=== PATIENT | male | born 1955 | race Caucasian/White ===

== ENCOUNTER → 2017-10-24 | Outpatient (CLI) | payer BC ==
[~2017-10-24] MED LIST: ASCO100061 PO; B-CO-25 PO; CHOL1000 PO; METO50TA7 PO; RIVA1TAB4 PO; SIMV40TA2 PO; TAMS0.4C38 PO
--- NOTE | 2017-10-24 13:52 | DIAGNOSTIC IMAGING REPORT ---
CHEST 2 VIEWS ROUTINE HISTORY: COUGH COMPARISON: Chest 04/11/2016. FINDINGS: The lungs are clear. Cardiac silhouette is borderline enlarged. This remains unchanged. No pleural effusions. No pneumothorax. IMPRESSION: Stable borderline cardiomegaly. No acute process within the chest. Electronically signed by: Fadi Mayers M.D. 10/24/2017 1:51 PM Dictated Date/Time: 10/24/2017 1:48 PM
[2017-10-24 17:01] LABS: BASO % 0.6 %; BASO ABS # 0.03 K/uL (0-0.2); COMPLETE YES; EOS % 0.6 %; HEMATOCRIT 38.4 % (42-52); IG% 0.2 %; LYMPH % 34.5 %; LYMPH ABS # 1.63 K/uL (1.2-3.4); MEAN CELL VOLUME 92.3 fL (80-100); MEAN CORPUSCULAR HEMOGLOBIN 31.7 pg (25-34); MEAN CORPUSCULAR HGB CONC 34.4 g/dl (32-36); MONO % 8.7 %; NEUT % 55.4 %; PLATELET COUNT 174 K/uL (130-400); RED BLOOD COUNT 4.16 M/uL (4.7-6.1); WHITE BLOOD COUNT 4.72 K/uL (4.8-10.8)
[2017-10-24 17:03] LABS: ALT/SGPT 129 U/L (12-78); BLOOD UREA NITROGEN 21 mg/dl (7-18); BUN/CREATININE RATIO 18.3 (10-20); CALCIUM 8.8 mg/dl (8.5-10.1); CARBON DIOXIDE 28 mmol/L (21-32); CHLORIDE 103 mmol/L (98-107); CREATININE 1.14 mg/dl (0.60-1.40); GLUCOSE 98 mg/dl (70-99); SODIUM 137 mmol/L (136-145)
[2017-10-24 17:06] LABS: ALB/GLOB RATIO 0.9 (0.9-2); ALKALINE PHOSPHATASE 118 U/L (45-117); AST/SGOT 99 U/L (15-37)
[2017-10-24 17:06] LABS: URINE APPEARANCE TURBID (CLEAR); URINE BILIRUBIN NEG (NEG); URINE COLOR DK YELLOW; URINE EPITHELIAL CELL AUTO 0-5 /lpf (0-5); URINE NITRITE NEG (NEG); URINE SPECIFIC GRAVITY 1.028 (1.000-1.030); UROBILINOGEN NEG (NEG)
[2017-10-24 17:07] LABS: MANUAL MICROSCOPIC REQUIRED? NO; REVIEW REQ? NO
[2017-10-24 17:45] LABS: LYME DISEASE AB IGG NEG (NEG); LYME DISEASE AB IGM NEG (NEG)
== END | disposition home or self-care (01) ==
LOC: C.LABBC 13:18
PROVIDERS: ATTEND Internal Medicine
DX: R50.9 Fever, unspecified (principal); R53.81 Other malaise; R53.83 Other fatigue; R05 Cough

== ENCOUNTER → 2017-11-02 | Outpatient (CLI) | payer BC ==
[2017-11-02 12:29] LABS: BASO % 0.2 %; BASO ABS # 0.01 K/uL (0-0.2); COMPLETE YES; EOS % 1.6 %; HEMATOCRIT 41.3 % (42-52); IG% 0.4 %; LYMPH % 40.2 %; LYMPH ABS # 1.98 K/uL (1.2-3.4); MEAN CELL VOLUME 94.1 fL (80-100); MEAN CORPUSCULAR HEMOGLOBIN 31.4 pg (25-34); MEAN CORPUSCULAR HGB CONC 33.4 g/dl (32-36); MEAN PLATELET VOLUME 9.7 fL (7.4-10.4); NEUT % 46.6 %; PLATELET COUNT 355 K/uL (130-400); RED BLOOD COUNT 4.39 M/uL (4.7-6.1); WHITE BLOOD COUNT 4.93 K/uL (4.8-10.8)
[2017-11-02 12:53] LABS: ALT/SGPT 62 U/L (12-78); AST/SGOT 23 U/L (15-37); BLOOD UREA NITROGEN 21 mg/dl (7-18); BUN/CREATININE RATIO 21.3 (10-20); CALCIUM 8.7 mg/dl (8.5-10.1); CARBON DIOXIDE 28 mmol/L (21-32); CHLORIDE 109 mmol/L (98-107); CREATININE 0.96 mg/dl (0.60-1.40); GLUCOSE 90 mg/dl (70-99); SODIUM 139 mmol/L (136-145)
[2017-11-02 12:55] LABS: ALB/GLOB RATIO 0.9 (0.9-2); ALKALINE PHOSPHATASE 75 U/L (45-117)
== END | disposition home or self-care (01) ==
LOC: C.LABPBG 09:44
PROVIDERS: ATTEND Internal Medicine
DX: R05 Cough (principal); R53.81 Other malaise

== ENCOUNTER 2018-01-24 17:32 | Inpatient (IN) | payer OTHER ==
[~2018-01-24] VITALS: Ht 177.8 cm; Wt 101.0 kg
[~2018-01-24 17:32] MED LIST changes: -ALBUT/IPRATROP 3MG/0.5MG NEB 3 ML VIAL INH STA; -AMOX875T PO; -DILT-202 PO; -ESMOLOL HCL 10 MG/ML 10 ML VIAL ONE; -LIDOCAINE HCL 2% 2 ML VIAL (20MG/ML) ONE; -METOPROLOL TARTRATE 1 MG/ML VIAL IV STA; -METOPROLOL TARTRATE 1 MG/ML VIAL ONE; -MIDAZOLAM HCL 1 MG/ML 2ML VIAL ONE; -ONDANSETRON INJ 2 MG/ML 2 ML VIAL ONE; -PROPOFOL IV EMULSION 10 MG/ML 20 ML VIAL IV ONE; -SODIUM CHLORIDE 0.9% 500ML 500 ML IV ONE; -TPRSR50 PO
[2018-01-24] MEDS ORDERED: SODIUM CHLORIDE 0.9% 1000ML 2,000 ML IV STA (17:57)
[2018-01-24 18:49] LABS: ISTAT IONIZED CALCIUM 1.09 mmol/l (1.12-1.32); ISTAT POTASSIUM 4.8 mEq/L (3.3-5.0)
[2018-01-24 18:57] LABS: BASO % 0.1 %; BASO ABS # 0.01 K/uL (0-0.2); EOS % 0.2 %; EOS ABS # 0.03 K/uL (0-0.5); HEMATOCRIT 46.6 % (42-52); HEMOGLOBIN 17.1 g/dL (14.0-18.0); IG# 0.01 K/uL (0.00-0.02); LYMPH % 6.6 %; LYMPH ABS # 0.84 K/uL (1.2-3.4); MEAN CELL VOLUME 89.6 fL (80-100); MEAN CORPUSCULAR HEMOGLOBIN 32.9 pg (25-34); MEAN CORPUSCULAR HGB CONC 36.7 g/dl (32-36); MEAN PLATELET VOLUME 9.6 fL (7.4-10.4); MONO % 1.8 %; MONO ABS # 0.23 K/uL (0.11-0.59); NEUT % 91.2 %; NEUT ABS # 11.62 K/uL (1.4-6.5); PLATELET COUNT 253 K/uL (130-400); RED CELL DISTRIBUTION WIDTH CV 14.1 % (11.5-14.5); RED CELL DISTRIBUTION WIDTH SD 46.1 fL (36.4-46.3); WHITE BLOOD COUNT 12.74 K/uL (4.8-10.8)
--- NOTE | 2018-01-24 18:57 | DIAGNOSTIC IMAGING REPORT ---
CHEST ONE VIEW PORTABLE CLINICAL HISTORY: fever COMPARISON STUDY: 10/24/2017 FINDINGS: The heart is mildly enlarged. There is no failure. There are left mid and lower lung zone airspace opacity suspicious for pneumonia. There are no pleural effusions.[ IMPRESSION: Left lower lung zone airspace opacities, suspicious for pneumonia. Films subsequent to treatment are recommended in follow-up. Electronically signed by: Jun Vann M.D. 01/24/2018 6:56 PM Dictated Date/Time: 01/24/2018 6:55 PM
[2018-01-24] MEDS ORDERED: PIPERACILLIN/TAZOBACTAM 4.5 GM/100ML D5W IV STA (19:04)
[2018-01-24] MEDS ORDERED: DILTIAZEM BOLUS / DRIP IV STA ×2 (19:19→20:02)
[2018-01-24 19:26] LABS: ALBUMIN 4.1 gm/dl (3.4-5.0); ALKALINE PHOSPHATASE 64 U/L (45-117); ALT/SGPT 32 U/L (12-78); BLOOD UREA NITROGEN 16 mg/dl (7-18); CALCIUM 8.8 mg/dl (8.5-10.1); CARBON DIOXIDE 25 mmol/L (21-32); CREATININE 1.15 mg/dl (0.60-1.40); GLUCOSE 98 mg/dl (70-99); SODIUM 138 mmol/L (136-145); TOTAL PROTEIN 8.1 gm/dl (6.4-8.2)
[2018-01-24 19:27] LABS: CKMB 1.1 ng/ml (0.5-3.6)
[2018-01-24] MEDS ORDERED: DILTIAZEM HCL 5 MG/ML 5 ML VIAL BOLUS/OMNI IV SCH (19:30)
[2018-01-24] MEDS: DILTIAZEM HCL INJ 125 MG in DEXTROSE 5% 100ML IV PRN (19:55)
[2018-01-24] MEDS ORDERED: MoRPHine SULFATE 2 MG/ML CARP IV PRN (20:00)
[2018-01-24] MEDS ORDERED: MAGNESIUM HYDROXIDE SUSP 30 ML UDC PO PRN (20:00)
[2018-01-24] MEDS ORDERED: ALBUTEROL 0.083% NEBU SOLN 3 ML VIAL INH PRN (20:00)
[2018-01-24] MEDS ORDERED: ZOLPIDEM TARTRATE 5 MG TAB PO PRN (20:00)
[2018-01-24] MEDS ORDERED: POLYETHYLENE (MIRALAX) 17 GM PACK PO PRN (20:00)
[2018-01-24] MEDS ORDERED: ONDANSETRON INJ 2 MG/ML 2 ML VIAL IV PRN (20:00)
[2018-01-24 20:13] LABS: POTASSIUM 3.8 mmol/L (3.5-5.1); PTT PATIENT 23.9 SECONDS (21.0-31.0)
--- NOTE | 2018-01-24 20:15 | History and Physical ---
History & Physical Date & Time of Service: Jan 24, 2018 at 19:41 Chief Complaint: Other Complaint Primary Care Physician: Michel Madera M.D. History of Present Illness Source: patient, hospital records 62 y/o M Hx AF, HPL. Pt underwent a colonoscopy today and is suspected to have aspirated. He awoke from the procedure with SOB, a cough and a burning sensation in his lungs. He subsequently developed a fever and presented to the ER. He was hypoxic on arrival. He denies that he was ill prior to the procedure. The pt normally takes Xarelto which he had DCd 3 days prior in preparation for the procedure. The colonoscopy report indicates that biopsies were not necessary. Past Medical/Surgical History 1) Chronic AF 2) HPL 3) Obese Family History FH: cancer FH: gallbladder disease FH: hypertension Hypertension Kidney disease Kidney stones Father alive age 90 - CAD Mother owing to uterine CA and sepsis Social History Nonsmoker - occasional ETOH - works construction for [employer] Smoking Status: Never Smoker Marital Status: Occupational Status: employed Allergies Coded Allergies: No Known Allergies (Verified , 01/24/18) Home Medications Scheduled Ascorbic Acid (Vitamin C), 1 TAB PO QAM B-Complex Vitamins (Vitamin B Complex), 1 TAB PO QAM Lutein-Zeaxanthin (Lutein), 1 CAP PO QAM Metoprolol Succinate (Metoprolol Succinate ER), 100 MG PO QAM Multivitamins/Minerals (Mvi With Minerals), 1 TAB PO DAILY Rivaroxaban (Xarelto), 20 MG PO QPM Simvastatin (Zocor), 40 MG PO QPM Tamsulosin Hcl (Flomax), 0.4 MG PO HS Review of Systems Constitutional: + fever, + chills, No sweats Eyes: No worsening of vision ENT: No hearing loss, No unusual epistaxis, No nasal symptoms Respiratory: + cough, + sputum, + shortness of breath, + dyspnea on exertion, + dyspnea at rest Cardiovascular: + problem reported (BL burning pain) Abdomen: No pain, No nausea, No vomiting Musculoskeletal: No joint pain Genitourinary - Male: No hematuria, No dysuria, No urinary frequency Psychiatric: No depression symptoms Endocrine: No fatigue Hematologic / Lymphatic: No abnormal bleeding/bruising Integumentary: No rash Allergic / Immunologic: No environmental allergies Physical Exam Vital Signs Date Time Temp Pulse Resp B/P (MAP) Pulse Ox O2 Delivery O2 Flow Rate FiO2 01/24/18 18:33 161 24 154/86 95 Oxymask 01/24/18 17:45 135 01/24/18 17:38 37.6 146 28 146/107 94 Oxymask 4.0 General Appearance: WD/WN, no apparent distress Head: normocephalic Eyes: normal inspection ENT: normal ENT inspection, pharynx normal Neck: supple, no JVD Respiratory/Chest: + pertinent finding (Wheezing is present in lower L lung lovelace) Cardiovascular: + tachycardia, + irregularly irregular Abdomen/GI: normal bowel sounds, non tender, soft Back: normal inspection Extremities/Musculoskelatal: normal inspection, no calf tenderness 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, no motor/sensory deficits, alert, oriented x 3 Skin: normal color Diagnostics Laboratory Results Results Past 24 Hours Test 01/24/18 18:30 01/24/18 18:34 01/24/18 18:35 01/24/18 19:33 Range/Units White Blood Count 12.74 4.8-10.8 K/uL Red Blood Count 5.20 4.7-6.1 M/uL Hemoglobin 17.1 14.0-18.0 g/dL Hematocrit 46.6 42-52 % Mean Corpuscular Volume 89.6 80-100 fL Mean Corpuscular Hemoglobin 32.9 25-34 pg Mean Corpuscular Hemoglobin Concent 36.7 32-36 g/dl Platelet Count 253 130-400 K/uL Mean Platelet Volume 9.6 7.4-10.4 fL Neutrophils (%) (Auto) 91.2 % Lymphocytes (%) (Auto) 6.6 % Monocytes (%) (Auto) 1.8 % Eosinophils (%) (Auto) 0.2 % Basophils (%) (Auto) 0.1 % Neutrophils # (Auto) 11.62 1.4-6.5 K/uL Lymphocytes # (Auto) 0.84 1.2-3.4 K/uL Monocytes # (Auto) 0.23 0.11-0.59 K/uL Eosinophils # (Auto) 0.03 0-0.5 K/uL Basophils # (Auto) 0.01 0-0.2 K/uL RDW Standard Deviation 46.1 36.4-46.3 fL RDW Coefficient of Variation 14.1 11.5-14.5 % Immature Granulocyte % (Auto) 0.1 % Immature Granulocyte # (Auto) 0.01 0.00-0.02 K/uL Sodium Level 138 136-145 mmol/L Potassium Level 3.5-5.1 mmol/L Chloride Level 104 98-107 mmol/L Carbon Dioxide Level 25 21-32 mmol/L Anion Gap 9.0 15.0 16-25 mmol/L Blood Urea Nitrogen 16 7-18 mg/dl Creatinine 1.15 0.60-1.40 mg/dl Est Creatinine Clear Calc Drug Dose 78.9 ml/min Estimated GFR () 78.6 Estimated GFR (Non- 67.8 BUN/Creatinine Ratio 14.2 10-20 Random Glucose 98 70-99 mg/dl Calcium Level 8.8 8.5-10.1 mg/dl Magnesium Level 1.8-2.4 mg/dl Total Bilirubin 1.3 0.2-1 mg/dl Direct Bilirubin 0-0.2 mg/dl Aspartate Amino Transf (AST/SGOT) 15-37 U/L Alanine Aminotransferase (ALT/SGPT) 32 12-78 U/L Alkaline Phosphatase 64 45-117 U/L Total Creatine Kinase 39-308 U/L Creatine Kinase MB 1.1 0.5-3.6 ng/ml Creatine Kinase MB Ratio 0-3.0 Troponin I < 0.015 0-0.045 ng/ml Total Protein 8.1 6.4-8.2 gm/dl Albumin 4.1 3.4-5.0 gm/dl Bedside Hemoglobin 16.7 14.0-18.0 g/dl Bedside Hematocrit 49 42-52 % Bedside Sodium 140 135-144 mEq/L Bedside Potassium 4.8 3.3-5.0 mEq/L Bedside Chloride 104 101-112 mEq/L Bedside Total CO2 28 24-31 mEq/l Bedside Blood Urea Nitrogen 22 7-18 mg/dl Bedside Creatinine 1.0 0.6-1.3 mg/dl Bedside Glucose (other) 106 70-99 mg/dl Bedside Lactic Acid Venous 2.64 0.90-1.70 mmol/L Bedside Ionized Calcium (Avinash) 1.09 1.12-1.32 mmol/l Urine Color YELLOW Urine Appearance CLEAR CLEAR Urine pH 5.0 4.5-7.5 Urine Specific [place] 1.011 1.000-1.030 Urine Protein NEG NEG Urine Glucose (UA) NEG NEG Urine Ketones NEG NEG Urine Occult Blood NEG NEG Urine Nitrite NEG NEG Urine Bilirubin NEG NEG Urine Urobilinogen NEG NEG Urine Leukocyte Esterase NEG NEG Urine WBC (Auto) 0 0-5 /hpf Urine RBC (Auto) 0-4 0-4 /hpf Urine Hyaline Casts (Auto) 0 0-5 /lpf Urine Epithelial Cells (Auto) 0-5 0-5 /lpf Urine Bacteria (Auto) NEG NEG Microbiology Results 01/24/18 Blood Culture, Received Pending 01/24/18 Blood Culture, Received Pending Diagnostic Radiology CXR: Left lower lung zone airspace opacities, suspicious for pneumonia. 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 Pt underwent a colonoscopy today and is suspected to have aspirated. He awoke from the procedure with SOB, a cough and a burning sensation in his lungs. He subsequently developed a fever and presented to the ER. He was hypoxic on arrival. He denies that he was ill prior to the procedure. The pt normally takes Xarelto which he had DCd 3 days prior in preparation for the procedure. 1) Pneumonia - presumed aspiration - placed on Unasyn, nebs, 02 - pt is stable on admission. 2) AF - rapid - likely this is partially compensatory and also related to neb treatments - Diltiazem GTT provided - will monitor BP/rate on telemetry. Can restart Xarelto AM as no biopsies were obtained during colonoscopy. 3) HPL - cont Zocor Full code - Xarelto prophylaxis Total time for this admit including review of labs, meds, imaging, records - discussion with pt and ER attending - 35 min Advanced Directives Existing Advance Directive: No Resuscitation Status VTE Prophylaxis Will order VTE Prophylaxis: Yes
[2018-01-24 21:08] VITALS: BP 123/74; PULSE 120; TEMP 38.5; O2SAT 93; Ht 177.8 cm; Wt 101.0 kg
[2018-01-24] MEDS: ALBUT/IPRATROP 3MG/0.5MG NEB 3 ML VIAL INH SCH (21:11)
[2018-01-24 21:12] VITALS: PULSE 90; O2SAT 96
[2018-01-24] MEDS: RIVAROXABAN 20 MG TAB PO SCH (22:15)
[2018-01-24] MEDS: SODIUM CHLORIDE 0.9% 1000ML 1,000 ML IV SCH (22:15)
[2018-01-24] MEDS: ACETAMINOPHEN 325 MG TAB PO PRN (22:19)
[2018-01-24 22:23] VITALS: BP 100/56; PULSE 127; O2SAT 94
[2018-01-24 23:36] VITALS: BP 117/68; PULSE 115; TEMP 37.7; O2SAT 94
[2018-01-25] VITALS (11 sets, daily range): BP systolic 106–152; BP diastolic 65–79; PULSE 90–114; TEMP 36.7–37.7; O2SAT 91–96
[2018-01-25] MEDS: AMPICILLIN/SULBACTAM SOD INJ 3,000 MG in SODIUM CHLORIDE 0.9% 100ML 100 ML IV SCH ×5 (00:15→23:52)
[2018-01-25] MEDS: ALUMINUM/MAGNESIUM/SIMETH (MAALOX MAX) 30 ML UDC PO PRN ×2 (00:21→16:06)
--- NOTE | 2018-01-25 00:32 | EMERGENCY ROOM VISIT NOTE ---
History Report prepared by Patty: Cathie Reid Under the Supervision of: Dr. Wyatt Ryan D.O. First contact with patient: 17:36 Chief Complaint: OTHER COMPLAINT Stated Complaint: OTHER COMPLAINT History of Present Illness The patient is a 62 year old male who presents to the Emergency Room with complaints of persistent SOB starting CONTACT L[employer] CUTTER. The patient had a routine colonoscopy today. The patient started coughing after he was given propofol and became febrile and hypoxic. He was sent to the ED with concern for aspiration. He was feeling well prior to the colonoscopy. He currently reports chills, heaviness in his lungs, productive cough, and SOB. He does not have any other complaints. The patient has a history of atrial fibrillation. He was on Xarelto , but stopped 3 days ago to prepare for the colonoscopy. The patient is on metoprolol. He denies any missed doses. Source of History: patient, nursing staff Onset: CONTACT L[employer] CUTTER Position: other (global) Quality: other (SOB) Timing: other (persistent) Associated Symptoms: + fevers, + chills, + cough Review of Systems See HPI for pertinent positives & negatives. A total of 10 systems reviewed and were otherwise negative. Past Medical & Surgical Medical Problems: (1) Aspiration pneumonia (2) Hypertension (3) Hypoxia (4) New onset a-fib Family History FH: cancer FH: gallbladder disease FH: hypertension Hypertension Kidney disease Kidney stones Social History Smoking Status: Never Smoker Alcohol Use: occasionally Marital Status: Occupation Status: employed Current/Historical Medications Scheduled Ascorbic Acid (Vitamin C), 1 TAB PO QAM B-Complex Vitamins (Vitamin B Complex), 1 TAB PO QAM Lutein-Zeaxanthin (Lutein), 1 CAP PO QAM Metoprolol Succinate (Metoprolol Succinate ER), 100 MG PO QAM Multivitamins/Minerals (Mvi With Minerals), 1 TAB PO DAILY Rivaroxaban (Xarelto), 20 MG PO QPM Simvastatin (Zocor), 40 MG PO QPM Tamsulosin Hcl (Flomax), 0.4 MG PO HS Allergies Coded Allergies: No Known Allergies (Verified , 01/24/18) Physical Exam Vital Signs Date Time Temp Pulse Resp B/P (MAP) Pulse Ox O2 Delivery O2 Flow Rate FiO2 01/24/18 19:52 133 21 94 Oxymask 01/24/18 19:47 138 25 94 Oxymask 01/24/18 19:46 120/65 01/24/18 19:32 159 21 95 Oxymask 01/24/18 19:31 132/88 01/24/18 19:17 151 27 95 Oxymask 01/24/18 19:16 133/75 01/24/18 19:02 161 33 96 Oxymask 01/24/18 19:01 133/86 01/24/18 18:47 168 28 95 Oxymask 01/24/18 18:46 140/86 01/24/18 18:33 161 24 154/86 95 Oxymask 01/24/18 18:33 154/86 01/24/18 18:32 156 28 93 01/24/18 18:17 125 27 96 01/24/18 18:02 136 28 94 01/24/18 17:47 125 21 93 01/24/18 17:45 135 01/24/18 17:38 37.6 146 28 146/107 94 Oxymask 4.0 01/24/18 17:36 146/107 Physical Exam GENERAL: Sitting up in bed, in moderate distress, on 5L nasal cannula, talking in full sentences EYE EXAM: normal conjunctiva. OROPHARYNX: no exudate, no erythema, lips, buccal mucosa, and tongue normal and mucous membranes are moist NECK: supple, no nuchal rigidity, no adenopathy, non-tender, no JVD LUNGS: Coarse bilaterally. Normal chest wall mechanics HEART: tachycardic and irregularly irregular. No murmurs, S1 normal and S2 normal ABDOMEN: abdomen soft, non-tender, normo-active bowel sounds, no masses, no rebound or guarding. BACK: Back is symmetrical on inspection and there is no deformity, no midline tenderness, no CVA tenderness. SKIN: no rashes and no bruising UPPER EXTREMITIES: upper extremities are grossly normal. LOWER EXTREMITIES: Calves equal bilaterally. NEURO EXAM: Normal sensorium, cranial nerves II-XII grossly intact, normal speech, no gross weakness of arms, no gross weakness of legs. Medical Decision & Procedures ER Provider Diagnostic Interpretation: Xray results as stated below per my and the radiologist's interpretation: CHEST ONE VIEW PORTABLE CLINICAL HISTORY: fever COMPARISON STUDY: 10/24/2017 FINDINGS: The heart is mildly enlarged. There is no failure. There are left mid and lower lung zone airspace opacity suspicious for pneumonia. There are no pleural effusions.[ IMPRESSION: Left lower lung zone airspace opacities, suspicious for pneumonia. Films subsequent to treatment are recommended in follow-up. Electronically signed by: Jun Vann M.D. 01/24/2018 6:56 PM Dictated Date/Time: 01/24/2018 6:55 PM Laboratory Results 01/24/18 18:30 Red Blood Count 5.20, Mean Corpuscular Volume 89.6, Mean Corpuscular Hemoglobin 32.9, Mean Corpuscular Hemoglobin Concent 36.7, Mean Platelet Volume 9.6, Neutrophils (%) (Auto) 91.2, Lymphocytes (%) (Auto) 6.6, Monocytes (%) (Auto) 1.8, Eosinophils (%) (Auto) 0.2, Basophils (%) (Auto) 0.1, Neutrophils # (Auto) 11.62, Lymphocytes # (Auto) 0.84, Monocytes # (Auto) 0.23, Eosinophils # (Auto) 0.03, Basophils # (Auto) 0.01 01/24/18 18:30 01/24/18 19:33 Test 01/24/18 18:30 01/24/18 18:34 01/24/18 18:35 01/24/18 19:33 White Blood Count 12.74 K/uL (4.8-10.8) Red Blood Count 5.20 M/uL (4.7-6.1) Hemoglobin 17.1 g/dL (14.0-18.0) Hematocrit 46.6 % (42-52) Mean Corpuscular Volume 89.6 fL (80-100) Mean Corpuscular Hemoglobin 32.9 pg (25-34) Mean Corpuscular Hemoglobin Concent 36.7 g/dl (32-36) Platelet Count 253 K/uL (130-400) Mean Platelet Volume 9.6 fL (7.4-10.4) Neutrophils (%) (Auto) 91.2 % Lymphocytes (%) (Auto) 6.6 % Monocytes (%) (Auto) 1.8 % Eosinophils (%) (Auto) 0.2 % Basophils (%) (Auto) 0.1 % Neutrophils # (Auto) 11.62 K/uL (1.4-6.5) Lymphocytes # (Auto) 0.84 K/uL (1.2-3.4) Monocytes # (Auto) 0.23 K/uL (0.11-0.59) Eosinophils # (Auto) 0.03 K/uL (0-0.5) Basophils # (Auto) 0.01 K/uL (0-0.2) RDW Standard Deviation 46.1 fL (36.4-46.3) RDW Coefficient of Variation 14.1 % (11.5-14.5) Immature Granulocyte % (Auto) 0.1 % Immature Granulocyte # (Auto) 0.01 K/uL (0.00-0.02) Est Creatinine Clear Calc Drug Dose 78.9 ml/min Estimated GFR () 78.6 Estimated GFR (Non- 67.8 BUN/Creatinine Ratio 14.2 (10-20) Calcium Level 8.8 mg/dl (8.5-10.1) Total Bilirubin 1.3 mg/dl (0.2-1) Alanine Aminotransferase (ALT/SGPT) 32 U/L (12-78) Alkaline Phosphatase 64 U/L (45-117) Creatine Kinase MB 1.1 ng/ml (0.5-3.6) Creatine Kinase MB Ratio (0-3.0) Troponin I < 0.015 ng/ml (0-0.045) Total Protein 8.1 gm/dl (6.4-8.2) Albumin 4.1 gm/dl (3.4-5.0) Bedside Hemoglobin 16.7 g/dl (14.0-18.0) Bedside Hematocrit 49 % (42-52) Bedside Sodium 140 mEq/L (135-144) Bedside Potassium 4.8 mEq/L (3.3-5.0) Bedside Chloride 104 mEq/L (101-112) Bedside Total CO2 28 mEq/l (24-31) Anion Gap 15.0 mmol/L (16-25) Bedside Blood Urea Nitrogen 22 mg/dl (7-18) Bedside Creatinine 1.0 mg/dl (0.6-1.3) Bedside Glucose (other) 106 mg/dl (70-99) Bedside Lactic Acid Venous 2.64 mmol/L (0.90-1.70) Bedside Ionized Calcium (Avinash) 1.09 mmol/l (1.12-1.32) Urine Color YELLOW Urine Appearance CLEAR (CLEAR) Urine pH 5.0 (4.5-7.5) Urine Specific [place] 1.011 (1.000-1.030) Urine Protein NEG (NEG) Urine Glucose (UA) NEG (NEG) Urine Ketones NEG (NEG) Urine Occult Blood NEG (NEG) Urine Nitrite NEG (NEG) Urine Bilirubin NEG (NEG) Urine Urobilinogen NEG (NEG) Urine Leukocyte Esterase NEG (NEG) Urine WBC (Auto) 0 /hpf (0-5) Urine RBC (Auto) 0-4 /hpf (0-4) Urine Hyaline Casts (Auto) 0 /lpf (0-5) Urine Epithelial Cells (Auto) 0-5 /lpf (0-5) Urine Bacteria (Auto) NEG (NEG) Prothrombin Time 10.5 SECONDS (9.0-12.0) Prothromb Time International Ratio 1.0 (0.9-1.1) Activated Partial Thromboplast Time 23.9 SECONDS (21.0-31.0) Partial Thromboplastin Ratio 0.9 Magnesium Level 1.7 mg/dl (1.8-2.4) Direct Bilirubin 0.2 mg/dl (0-0.2) Aspartate Amino Transf (AST/SGOT) 12 U/L (15-37) Total Creatine Kinase 86 U/L (39-308) Hepatitis C Antibody Screen NEG (NEG) Laboratory results per my review. Medications Administered Medications (Trade) Dose Ordered Sig/Rashida Route Start Time Stop Time Status Last Admin Dose Admin Sodium Chloride 2,000 ml @ 999 mls/hr Q2H1M STAT IV 01/24/18 17:57 01/24/18 19:57 DC 01/24/18 17:57 999 MLS/HR Piperacillin Sod/ Tazobactam Sod (Zosyn Iv) 4.5 gm NOW STAT IV 01/24/18 19:04 01/24/18 19:05 DC 01/24/18 19:30 4.5 GM Diltiazem HCl (Cardizem Inj) 10 mg TODAY@1930 IV 01/24/18 19:30 01/24/18 19:31 DC 01/24/18 19:43 10 MG Diltiazem HCl 125 mg/Dextrose 125 ml @ 0 mls/hr Q0M PRN IV 01/24/18 19:30 02/23/18 19:29 01/24/18 19:55 5 MLS/HR ECG Per My Interpretation Indication: SOB/dyspnea Rate (beats per minute): 129 Rhythm: atrial fibrillation (with RVR) Findings: Q waves (Inferior), RBBB, T-wave inversion (Septal), left axis deviation Comparison ECG Date: 20-May-2016 Change: A fib with RVR new, septal T wave inversion new. ED Course ED COURSE: Vital signs were reviewed and showed tachycardia. The patients medical record was reviewed The above diagnostic studies were performed and reviewed. ED treatments and interventions as stated above. 1751: The patient was evaluated in room B12A. A complete history and physical examination was performed. 1756: NSS 2000 ml @ 999 mls/hr IV. 1903: Zosyn Iv 4.5 gm IV. 1917: I reevaluated the patient. He has had 1.5 liters of fluid. He is still tachycardic, but feels better. 1918: Diltiazem HCl 10 mg IV. 1927: Dr. Haider, [facility] hospitalist is aware of the patient. 1935: Upon reevaluation, the patient is stable. His heart rate is in the 130s. I discussed my findings with the patient and he understands and agrees with the treatment plan. Based on the patients age, coexisting illnesses, exam and lab findings the decision to treat as an inpatient was made. The patient remained stable while under my care. The patient will be evaluated for further management. Medical Decision Differential diagnoses includes but is not limited to pneumonia, bronchitis, COPD/Asthma exacerbation, pneumothorax, pulmonary embolism, congestive heart failure, acute coronary syndrome. Patient is a 60-year-old Lorrie that was just scoped by GI and start coughing. There is concern for possible aspiration. When he woke up he became she was short of breath and was placed on nasal cannula requiring oxygen. He was in A. fib with RVR. He has been in A. fib for the past several months. CBC shows a mild leukocytosis. BMP all LFTs, bilirubin and troponin was negative. INR was unremarkable. He is on Xarelto but has not taken this for the past 2 days secondary to the colonoscopy. UA was unremarkable. Chest x-ray shows an infiltrate. Patient was covered with IV antibiotics. After 2 L bolus heart rates remained in the 140s. At this point he was given a Cardizem bolus and placed on a Cardizem drip after I believed he was hydrated. He was discussed with internal medicine and admitted for further workup. Medication Reconcilliation Current Medication List: was personally reviewed by me Blood Pressure Screening Patient's blood pressure: Normal blood pressure Blood pressure disposition: Did not require urgent referral Consults Time Called: 1927 Consulting Physician: Dr. Haider, [facility] hospitalist He is aware of the patient. Impression Primary Impression: Aspiration pneumonitis Additional Impressions: Atrial fibrillation with RVR Hypoxia Critical Care I have personally spent 35 minutes of critical care time in the direct management of this patient. This includes bedside care, interpretation of diagnostic studies, and testing, discussion with consultants, patient, and family members, and other required patient management activities. This 35 minutes is in excess of all separately billable procedures. Scribe Attestation The scribe's documentation has been prepared under my direction and personally reviewed by me in its entirety. I confirm that the note above accurately reflects all work, treatment, procedures, and medical decision making performed by me. Departure Information Dispostion Being Evaluated By Hospitalist Referrals Michel Madera M.D. (PCP) Patient Instructions My [facility] Problem Qualifiers
[2018-01-25] MEDS: ALBUT/IPRATROP 3MG/0.5MG NEB 3 ML VIAL INH SCH ×4 (01:56→19:03)
[2018-01-25 06:04] LABS: HEMATOCRIT 38.9 % (42-52); HEMOGLOBIN 13.7 g/dL (14.0-18.0); MEAN CORPUSCULAR HEMOGLOBIN 31.7 pg (25-34); MEAN CORPUSCULAR HGB CONC 35.2 g/dl (32-36); MEAN PLATELET VOLUME 9.4 fL (7.4-10.4); PLATELET COUNT 212 K/uL (130-400); RED CELL DISTRIBUTION WIDTH CV 14.2 % (11.5-14.5); RED CELL DISTRIBUTION WIDTH SD 47.3 fL (36.4-46.3); WHITE BLOOD COUNT 19.92 K/uL (4.8-10.8)
[2018-01-25 06:29] LABS: CALCIUM 7.9 mg/dl (8.5-10.1); CREATININE 1.21 mg/dl (0.60-1.40); POTASSIUM 4.1 mmol/L (3.5-5.1)
[2018-01-25] MEDS: SODIUM CHLORIDE 0.9% 1000ML 1,000 ML IV SCH (07:23)
[2018-01-25] MEDS: DILTIAZEM HCL INJ 125 MG in DEXTROSE 5% 100ML IV PRN ×3 (07:24→21:16)
[2018-01-25] MEDS: METOPROLOL SUCC 50MG EXT REL TAB PO SCH (07:44)
--- NOTE | 2018-01-25 10:51 | Hospitalist Progress Note ---
Hospitalist Progress Note Date of Service Jan 25, 2018. Subjective Pt evaluation today including: conversation w/ patient, conversation w/ family Patient feeling much better already today. He is now weaned off oxygen. He is coughing up copious amounts of sputum that is yellow but did have a scant amount of blood in it this morning which he showed me. When he was lying flat in the bed, he felt a little bit of pressure on his chest that was relieved as soon as he sat up in the bedside chair. Otherwise no chest pain. He does feel fluttering in his chest with his A. fib. Telemetry shows A. fib in the 100s-120s, he remains on a diltiazem drip. Constitutional: + fever, + chills Eyes: No problem reported ENT: No problem reported Respiratory: + cough, + sputum, + hemoptysis Cardiovascular: No chest pain Abdomen: No pain, No nausea, No vomiting All Other Systems: Reviewed and Negative Objective Vital Signs Date Time Temp Pulse Resp B/P (MAP) Pulse Ox O2 Delivery O2 Flow Rate FiO2 01/25/18 08:00 Room Air 01/25/18 07:36 37.0 100 18 111/70 (84) 96 01/25/18 07:15 108 16 95 Room Air 01/25/18 04:00 37.3 106 20 106/65 (79) 94 Nasal Cannula 2.0 01/25/18 04:00 Nasal Cannula 2.0 01/25/18 01:56 114 16 95 Nasal Cannula 2.0 01/25/18 00:01 Nasal Cannula 2.0 01/24/18 23:36 37.7 115 20 117/68 (84) 94 Nasal Cannula 2.0 01/24/18 22:23 127 20 100/56 (71) 94 Nasal Cannula 2.0 01/24/18 21:12 90 16 96 Nasal Cannula 2.0 01/24/18 21:08 38.5 120 22 123/74 93 Nasal Cannula 2.0 01/24/18 20:37 153 26 95 Oxymask 01/24/18 20:31 111/62 01/24/18 20:22 117 29 94 Oxymask 01/24/18 20:16 128/74 01/24/18 20:13 124/75 01/24/18 20:07 123 25 94 Oxymask 01/24/18 20:01 124/75 01/24/18 19:52 133 21 94 Oxymask 01/24/18 19:47 138 25 94 Oxymask 01/24/18 19:46 120/65 01/24/18 19:32 159 21 95 Oxymask 01/24/18 19:31 132/88 01/24/18 19:17 151 27 95 Oxymask 01/24/18 19:16 133/75 01/24/18 19:02 161 33 96 Oxymask 01/24/18 19:01 133/86 01/24/18 18:47 168 28 95 Oxymask 01/24/18 18:46 140/86 01/24/18 18:33 161 24 154/86 95 Oxymask 01/24/18 18:33 154/86 01/24/18 18:32 156 28 93 01/24/18 18:17 125 27 96 01/24/18 18:02 136 28 94 01/24/18 17:47 125 21 93 01/24/18 17:45 135 01/24/18 17:38 37.6 146 28 146/107 94 Oxymask 4.0 01/24/18 17:36 146/107 Physical Exam General Appearance: WD/WN, no apparent distress (Sitting in chair at the bedside) Eyes: normal inspection, sclerae normal ENT: hearing grossly normal Neck: trachea midline Respiratory/Chest: no respiratory distress, no accessory muscle use, + crackles (At the left base) Cardiovascular: no murmur, + irregularly irregular (And mildly tachycardic) Abdomen: normal bowel sounds, non tender, soft Extremities: non-tender, normal inspection, no pedal edema, no calf tenderness Neurologic/Psychiatric: alert, normal mood/affect, oriented x 3 Skin: normal color, warm/dry, no rash Laboratory Results Last 24 Hours Test 01/24/18 18:30 01/24/18 18:34 01/24/18 18:35 01/24/18 19:33 White Blood Count 12.74 K/uL Red Blood Count 5.20 M/uL Hemoglobin 17.1 g/dL Hematocrit 46.6 % Mean Corpuscular Volume 89.6 fL Mean Corpuscular Hemoglobin 32.9 pg Mean Corpuscular Hemoglobin Concent 36.7 g/dl Platelet Count 253 K/uL Mean Platelet Volume 9.6 fL Neutrophils (%) (Auto) 91.2 % Lymphocytes (%) (Auto) 6.6 % Monocytes (%) (Auto) 1.8 % Eosinophils (%) (Auto) 0.2 % Basophils (%) (Auto) 0.1 % Neutrophils # (Auto) 11.62 K/uL Lymphocytes # (Auto) 0.84 K/uL Monocytes # (Auto) 0.23 K/uL Eosinophils # (Auto) 0.03 K/uL Basophils # (Auto) 0.01 K/uL RDW Standard Deviation 46.1 fL RDW Coefficient of Variation 14.1 % Immature Granulocyte % (Auto) 0.1 % Immature Granulocyte # (Auto) 0.01 K/uL Sodium Level 138 mmol/L Potassium Level mmol/L 3.8 mmol/L Chloride Level 104 mmol/L Carbon Dioxide Level 25 mmol/L Anion Gap 9.0 mmol/L 15.0 mmol/L Blood Urea Nitrogen 16 mg/dl Creatinine 1.15 mg/dl Est Creatinine Clear Calc Drug Dose 78.9 ml/min Estimated GFR () 78.6 Estimated GFR (Non- 67.8 BUN/Creatinine Ratio 14.2 Random Glucose 98 mg/dl Calcium Level 8.8 mg/dl Magnesium Level mg/dl 1.7 mg/dl Total Bilirubin 1.3 mg/dl Direct Bilirubin mg/dl 0.2 mg/dl Aspartate Amino Transf (AST/SGOT) U/L 12 U/L Alanine Aminotransferase (ALT/SGPT) 32 U/L Alkaline Phosphatase 64 U/L Total Creatine Kinase U/L 86 U/L Creatine Kinase MB 1.1 ng/ml Creatine Kinase MB Ratio Troponin I < 0.015 ng/ml Total Protein 8.1 gm/dl Albumin 4.1 gm/dl Bedside Hemoglobin 16.7 g/dl Bedside Hematocrit 49 % Bedside Sodium 140 mEq/L Bedside Potassium 4.8 mEq/L Bedside Chloride 104 mEq/L Bedside Total CO2 28 mEq/l Bedside Blood Urea Nitrogen 22 mg/dl Bedside Creatinine 1.0 mg/dl Bedside Glucose (other) 106 mg/dl Bedside Lactic Acid Venous 2.64 mmol/L Bedside Ionized Calcium (Avinash) 1.09 mmol/l Urine Color YELLOW Urine Appearance CLEAR Urine pH 5.0 Urine Specific [place] 1.011 Urine Protein NEG Urine Glucose (UA) NEG Urine Ketones NEG Urine Occult Blood NEG Urine Nitrite NEG Urine Bilirubin NEG Urine Urobilinogen NEG Urine Leukocyte Esterase NEG Urine WBC (Auto) 0 /hpf Urine RBC (Auto) 0-4 /hpf Urine Hyaline Casts (Auto) 0 /lpf Urine Epithelial Cells (Auto) 0-5 /lpf Urine Bacteria (Auto) NEG Prothrombin Time 10.5 SECONDS Prothromb Time International Ratio 1.0 Activated Partial Thromboplast Time 23.9 SECONDS Partial Thromboplastin Ratio 0.9 Hepatitis C Antibody Screen NEG Test 01/25/18 05:39 White Blood Count 19.92 K/uL Red Blood Count 4.32 M/uL Hemoglobin 13.7 g/dL Hematocrit 38.9 % Mean Corpuscular Volume 90.0 fL Mean Corpuscular Hemoglobin 31.7 pg Mean Corpuscular Hemoglobin Concent 35.2 g/dl RDW Standard Deviation 47.3 fL RDW Coefficient of Variation 14.2 % Platelet Count 212 K/uL Mean Platelet Volume 9.4 fL Sodium Level 140 mmol/L Potassium Level 4.1 mmol/L Chloride Level 108 mmol/L Carbon Dioxide Level 25 mmol/L Anion Gap 7.0 mmol/L Blood Urea Nitrogen 14 mg/dl Creatinine 1.21 mg/dl Est Creatinine Clear Calc Drug Dose 75.6 ml/min Estimated GFR () 73.9 Estimated GFR (Non- 63.8 BUN/Creatinine Ratio 11.9 Random Glucose 121 mg/dl Lactic Acid Level 1.6 mmol/L Calcium Level 7.9 mg/dl Magnesium Level 2.0 mg/dl Assessment and Plan This patient is a 62 y/o M Hx PAF on Xarelto, HPL, and BPH. Pt underwent a colonoscopy on the day of admission and is suspected to have aspirated. He awoke from the procedure with SOB, a cough and a burning sensation in his lungs. He subsequently developed a fever and presented to the ER from the endoscopy suite. He was hypoxic on arrival. He denies that he was ill prior to the procedure. The pt normally takes Xarelto which he had DCd 3 days prior in preparation for the procedure. Chest x-ray showed a left lower lobe infiltrate. He was also in rapid atrial fibrillation. 1) aspiration pneumonia/acute hypoxic respiratory failure/hemoptysis-hemoptysis likely secondary to aspiration pneumonitis in the setting of being on anticoagulation, it is scant. He is now weaned down to room air. -Continue on Unasyn and can transition to Augmentin to finish out course of antibiotics after discharge -Continue nebs -Supplemental O2 as needed to keep pulse ox above 92% -Repeat chest x-ray in the morning -Follow CBC and if hemoptysis worsens, consult pulmonology, but okay to continue Xarelto for now given ongoing atrial fibrillation and minimal hemoptysis 2) rapid AF - likely this is partially compensatory and also related to neb treatments. Rates are slightly improved today to 100-120. -Continue on diltiazem GTT and wean off as rates improve - will monitor BP/rate on telemetry -Continue Xarelto for stroke prevention as no biopsies were obtained during colonoscopy. -Continue metoprolol 100 mg which is his home dose -Consult cardiology as per patient and 's request for further management options as needed 3) HPL -stable no issues -cont Zocor Full code - Xarelto prophylaxis Disposition-likely to home after rapid atrial fibrillation is improved and pneumonia improved
--- NOTE | 2018-01-25 11:26 | Anesthesiology Progress Note ---
Anesthesia Post Op Note Date & Time Jan 25, 2018 at 11:22 Vital Signs Pain Intensity: 0.0 Vital Signs Past 12 Hours Date Time Temp Pulse Resp B/P (MAP) Pulse Ox O2 Delivery O2 Flow Rate FiO2 01/25/18 08:00 Room Air 01/25/18 07:36 37.0 100 18 111/70 (84) 96 01/25/18 07:15 108 16 95 Room Air 01/25/18 04:00 37.3 106 20 106/65 (79) 94 Nasal Cannula 2.0 01/25/18 04:00 Nasal Cannula 2.0 01/25/18 01:56 114 16 95 Nasal Cannula 2.0 01/25/18 00:01 Nasal Cannula 2.0 01/24/18 23:36 37.7 115 20 117/68 (84) 94 Nasal Cannula 2.0 Notes Mental Status: alert / awake / arousable, participated in evaluation Nausea / Vomiting: adequately controlled, improving with treatment Pain: adequately controlled BP & HR: see Notes Hydration State: stable & adequate Anesthetic Complications: Pt up in chair, no respiratiory distress,on room air. States he feels better than yesterday. Plan to keep patient one more day to monitor. Remains in AFib. BP improved. States he is satisfied with care. Explained that unfortunately , situations can and do happen. VSS. Emotional support given to both patient and . Dr. Montague updated on patient status. Will be into see him today.
--- NOTE | 2018-01-25 12:24 | Cardiology Consultation ---
Cardiology Consultation Date of Consultation: Jan 25, 2018. Requesting Physician: Dr. Winston Reason for Consultation: AF with rapid HR Pt evaluation today including: conversation w/ patient, conversation w/ family , physical exam, lab review, review of studies, review of inpatient medication list History of Present Illness This is a 62-year-old gentleman with a history of hyperlipidemia and hypertension who had a colonoscopy on January 24, 2018, he subsequently became febrile and hypoxic and was sent to the ED. Apparently he felt well before his colonoscopy, this all occurred immediately afterwards. He does have a history of atrial fibrillation identified in March 2016, he was cardioverted on May 20, 2016 and had a stress echo which was negative for ischemia on June 12, 2017. He was noted to be in atrial fibrillation on October 24, 2017. With medical therapy his rate was controlled and he was asymptomatic therefore he was treated with a rate control strategy and Holter monitoring confirmed that he had good heart rate control on metoprolol succinate 100 mg daily (although the monitor came off after 5 or 6 hours since he was sweating). He was maintained on Xarelto which was stopped 3 days prior to colonoscopy. His heart rate increased significantly in atrial fibrillation after his colonoscopy and he was placed on intravenous diltiazem. He was admitted. He was also placed on antibiotics for suspected aspiration. He was started back on Xarelto on January 24, 2018 and received his metoprolol succinate this morning. Currently he feels relatively well, he notices little discomfort in his left precordial chest area, it is not pain and he relates to his breathing. He is not having palpitations or lightheadedness. Past Medical/Surgical History (1) Hypertension (2) Atrial fibrillation with RVR Family History FH: cancer FH: gallbladder disease FH: hypertension Hypertension Kidney disease Kidney stones Social History Smoking Status: Never Smoker History of Alcohol Use: Yes (OCCASIONALLY ) Review of Systems Constitutional: No fever, No weight loss, No weakness Respiratory: + see HPI, + cough, + sputum, + shortness of breath Cardiac: + see HPI, No chest pain Abdomen: No pain, No nausea, No vomiting, No diarrhea, No GI bleeding Male : No urinary frequency, No nocturia more than once/night, No slowing stream, No sexual dysfunction Neurologic: No paralysis, No weakness, No numbness/tingling, No balance problems Heme: No abnormal bleeding/bruising, No clotting problems Endo: No fatigue Skin: No problem reported All Other Systems: Reviewed and Negative Allergies Coded Allergies: No Known Allergies (Verified , 01/24/18) Medications Current Inpatient Medications Medications (Trade) Dose Ordered Sig/Rashida Route Start Time Stop Time Status Last Admin Dose Admin Diltiazem HCl 125 mg/Dextrose 125 ml @ 0 mls/hr Q0M PRN IV 01/24/18 19:30 02/23/18 19:29 01/25/18 07:24 10 MLS/HR Ampicillin Sodium/ Sulbactam Sodium 3000 mg/Sodium Chloride 108 ml @ 200 mls/hr Q6H IV 01/25/18 00:00 02/01/18 00:00 01/25/18 11:44 200 MLS/HR Acetaminophen (Tylenol Tab) 650 mg Q4H PRN PO 01/24/18 20:00 02/23/18 19:59 01/24/18 22:19 650 MG Al Hydrox/Mg Hydrox/Simethicone (Maalox Max Susp) 15 ml Q4H PRN PO 01/24/18 20:00 02/23/18 19:59 01/25/18 00:21 15 ML Magnesium Hydroxide (Milk Of Magnesia Susp) 30 ml Q12H PRN PO 01/24/18 20:00 02/23/18 19:59 Zolpidem Tartrate (Ambien Tab) 5 mg HSZ PRN PO 01/24/18 20:00 02/23/18 19:59 Ondansetron HCl (Zofran Inj) 4 mg Q6H PRN IV 01/24/18 20:00 02/23/18 19:59 Morphine Sulfate (MoRPHine SULFATE INJ) 2 mg Q30M PRN IV 01/24/18 20:00 02/07/18 19:59 Polyethylene (Miralax Powder Packet) 17 gm DAILY PRN PO 01/24/18 20:00 02/23/18 19:59 Rivaroxaban (Xarelto Tab) 20 mg QDD PO 01/24/18 22:00 02/23/18 21:59 01/24/18 22:15 20 MG Albuterol/ Ipratropium (Duoneb) 3 ml Q6R INH 01/24/18 21:00 02/23/18 20:59 01/25/18 07:15 3 ML Albuterol Sulfate (Ventolin 0.083% 2.5MG/3ML Neb) 2.5 mg Q4R PRN INH 01/24/18 20:00 02/23/18 19:59 Sodium Chloride 1,000 ml @ 125 mls/hr Q8H IV 01/24/18 21:30 01/25/18 13:29 01/25/18 07:23 125 MLS/HR Simvastatin (Zocor Tab) 40 mg QPM PO 01/25/18 21:00 02/24/18 20:59 Tamsulosin HCl (Flomax Cap) 0.4 mg HS PO 01/25/18 21:00 02/24/18 20:59 Metoprolol Succinate (Toprol Xl Tab) 100 mg QAM PO 01/25/18 09:00 02/24/18 08:59 01/25/18 07:44 100 MG Physical Exam Vital Signs Past 12 Hours Date Time Temp Pulse Resp B/P (MAP) Pulse Ox O2 Delivery O2 Flow Rate FiO2 01/25/18 11:33 37.7 90 18 152/77 (102) 93 Room Air 01/25/18 08:00 Room Air 01/25/18 07:36 37.0 100 18 111/70 (84) 96 01/25/18 07:15 108 16 95 Room Air 01/25/18 04:00 37.3 106 20 106/65 (79) 94 Nasal Cannula 2.0 01/25/18 04:00 Nasal Cannula 2.0 01/25/18 01:56 114 16 95 Nasal Cannula 2.0 Constitutional: General Apperance: heathly-appearing Level of Distress: NAD Psychiatric: Mental Status: active & alert Head: normocephalic Eyes: EOM: EOMI ENMT: normal ENT inspection, hearing grossly normal Neck: supple, no masses Lungs: Respiratory effort: no dyspnea, good air movement Auscultation: expiratory wheezing (On the left), rales/crackles on the left Cardiovascular: Heart Auscultation: no murmurs, no rubs, no gallops, irregular rate rhythm Peripheral Pulses: Bruits: none appreciated Abdomen: Bowel Sounds: normal Inspection & Palpation: soft, no tenderness, guarding & rebound, no masses Musculoskeletal: normal strength (5/5 throughout) Extremities: no edema Neurologic: Cranial Nerves: grossly intact Sensation: grossly intact Data Laboratory Results: Last 24 Hours Test 01/24/18 18:30 01/24/18 18:34 01/24/18 18:35 01/24/18 19:33 White Blood Count 12.74 K/uL Red Blood Count 5.20 M/uL Hemoglobin 17.1 g/dL Hematocrit 46.6 % Mean Corpuscular Volume 89.6 fL Mean Corpuscular Hemoglobin 32.9 pg Mean Corpuscular Hemoglobin Concent 36.7 g/dl Platelet Count 253 K/uL Mean Platelet Volume 9.6 fL Neutrophils (%) (Auto) 91.2 % Lymphocytes (%) (Auto) 6.6 % Monocytes (%) (Auto) 1.8 % Eosinophils (%) (Auto) 0.2 % Basophils (%) (Auto) 0.1 % Neutrophils # (Auto) 11.62 K/uL Lymphocytes # (Auto) 0.84 K/uL Monocytes # (Auto) 0.23 K/uL Eosinophils # (Auto) 0.03 K/uL Basophils # (Auto) 0.01 K/uL RDW Standard Deviation 46.1 fL RDW Coefficient of Variation 14.1 % Immature Granulocyte % (Auto) 0.1 % Immature Granulocyte # (Auto) 0.01 K/uL Sodium Level 138 mmol/L Potassium Level mmol/L 3.8 mmol/L Chloride Level 104 mmol/L Carbon Dioxide Level 25 mmol/L Anion Gap 9.0 mmol/L 15.0 mmol/L Blood Urea Nitrogen 16 mg/dl Creatinine 1.15 mg/dl Est Creatinine Clear Calc Drug Dose 78.9 ml/min Estimated GFR () 78.6 Estimated GFR (Non- 67.8 BUN/Creatinine Ratio 14.2 Random Glucose 98 mg/dl Calcium Level 8.8 mg/dl Magnesium Level mg/dl 1.7 mg/dl Total Bilirubin 1.3 mg/dl Direct Bilirubin mg/dl 0.2 mg/dl Aspartate Amino Transf (AST/SGOT) U/L 12 U/L Alanine Aminotransferase (ALT/SGPT) 32 U/L Alkaline Phosphatase 64 U/L Total Creatine Kinase U/L 86 U/L Creatine Kinase MB 1.1 ng/ml Creatine Kinase MB Ratio Troponin I < 0.015 ng/ml Total Protein 8.1 gm/dl Albumin 4.1 gm/dl Bedside Hemoglobin 16.7 g/dl Bedside Hematocrit 49 % Bedside Sodium 140 mEq/L Bedside Potassium 4.8 mEq/L Bedside Chloride 104 mEq/L Bedside Total CO2 28 mEq/l Bedside Blood Urea Nitrogen 22 mg/dl Bedside Creatinine 1.0 mg/dl Bedside Glucose (other) 106 mg/dl Bedside Lactic Acid Venous 2.64 mmol/L Bedside Ionized Calcium (Avinash) 1.09 mmol/l Urine Color YELLOW Urine Appearance CLEAR Urine pH 5.0 Urine Specific [place] 1.011 Urine Protein NEG Urine Glucose (UA) NEG Urine Ketones NEG Urine Occult Blood NEG Urine Nitrite NEG Urine Bilirubin NEG Urine Urobilinogen NEG Urine Leukocyte Esterase NEG Urine WBC (Auto) 0 /hpf Urine RBC (Auto) 0-4 /hpf Urine Hyaline Casts (Auto) 0 /lpf Urine Epithelial Cells (Auto) 0-5 /lpf Urine Bacteria (Auto) NEG Prothrombin Time 10.5 SECONDS Prothromb Time International Ratio 1.0 Activated Partial Thromboplast Time 23.9 SECONDS Partial Thromboplastin Ratio 0.9 Hepatitis C Antibody Screen NEG Test 01/25/18 05:39 White Blood Count 19.92 K/uL Red Blood Count 4.32 M/uL Hemoglobin 13.7 g/dL Hematocrit 38.9 % Mean Corpuscular Volume 90.0 fL Mean Corpuscular Hemoglobin 31.7 pg Mean Corpuscular Hemoglobin Concent 35.2 g/dl RDW Standard Deviation 47.3 fL RDW Coefficient of Variation 14.2 % Platelet Count 212 K/uL Mean Platelet Volume 9.4 fL Sodium Level 140 mmol/L Potassium Level 4.1 mmol/L Chloride Level 108 mmol/L Carbon Dioxide Level 25 mmol/L Anion Gap 7.0 mmol/L Blood Urea Nitrogen 14 mg/dl Creatinine 1.21 mg/dl Est Creatinine Clear Calc Drug Dose 75.6 ml/min Estimated GFR () 73.9 Estimated GFR (Non- 63.8 BUN/Creatinine Ratio 11.9 Random Glucose 121 mg/dl Lactic Acid Level 1.6 mmol/L Calcium Level 7.9 mg/dl Magnesium Level 2.0 mg/dl Imaging: Chest x-ray on admission shows left lower lobe infiltrate EKG: The initial electrocardiogram shows atrial fibrillation at 108 bpm with a right bundle branch block pattern and no acute changes Telemetry reviewed: Atrial fibrillation throughout, initially rapid heart rates as high as 140 bpm, mainly overnight and this morning a well-controlled heart rate Assessment & Plan 1. Atrial fibrillation: He has long-standing atrial fibrillation which is considered to be permanent, attempts were no longer plan to return him to sinus rhythm. For the most part he feels well in atrial fibrillation, although at night sometimes he notices a rapid heart rate. Heart rate was well controlled on a incomplete Holter monitor prior to colonoscopy. He is maintained on metoprolol succinate 100 mg daily and Xarelto 20 mg daily at home. I would recommend continuing these medications for now and discontinuing intravenous diltiazem. He has received both of these oral medications now. It would be prudent to keep him on the monitor while he was in the hospital, although perhaps not necessary. Thank you for allowing me to participate in his care.
[2018-01-25] MEDS: RIVAROXABAN 20 MG TAB PO SCH (16:06)
[2018-01-25] MEDS ORDERED: TAMSULOSIN HCL 0.4 MG CAP PO SCH (21:00)
[2018-01-25] MEDS ORDERED: SIMVASTATIN 40 MG TAB PO SCH (21:00)
[2018-01-25] MEDS: ACETAMINOPHEN 325 MG TAB PO PRN (23:43)
[2018-01-26] VITALS (8 sets, daily range): BP systolic 117–131; BP diastolic 72–86; PULSE 82–117; TEMP 36.5–37.5; O2SAT 93–95
[2018-01-26] MEDS: ALBUT/IPRATROP 3MG/0.5MG NEB 3 ML VIAL INH SCH ×3 (02:04→14:06)
[2018-01-26] MEDS: DILTIAZEM HCL INJ 125 MG in DEXTROSE 5% 100ML IV PRN ×2 (04:31→14:45)
[2018-01-26] MEDS: AMPICILLIN/SULBACTAM SOD INJ 3,000 MG in SODIUM CHLORIDE 0.9% 100ML 100 ML IV SCH ×3 (05:53→18:30)
[2018-01-26 06:13] LABS: BASO % 0.2 %; BASO ABS # 0.02 K/uL (0-0.2); EOS % 1.2 %; EOS ABS # 0.15 K/uL (0-0.5); HEMATOCRIT 36.5 % (42-52); HEMOGLOBIN 12.6 g/dL (14.0-18.0); IG# 0.04 K/uL (0.00-0.02); LYMPH % 11.2 %; LYMPH ABS # 1.41 K/uL (1.2-3.4); MEAN CELL VOLUME 90.1 fL (80-100); MEAN CORPUSCULAR HEMOGLOBIN 31.1 pg (25-34); MEAN CORPUSCULAR HGB CONC 34.5 g/dl (32-36); MEAN PLATELET VOLUME 9.5 fL (7.4-10.4); MONO % 7.5 %; MONO ABS # 0.94 K/uL (0.11-0.59); NEUT % 79.6 %; PLATELET COUNT 194 K/uL (130-400); RED CELL DISTRIBUTION WIDTH CV 14.5 % (11.5-14.5); RED CELL DISTRIBUTION WIDTH SD 47.9 fL (36.4-46.3); WHITE BLOOD COUNT 12.56 K/uL (4.8-10.8)
[2018-01-26 06:36] LABS: CALCIUM 8.2 mg/dl (8.5-10.1); CREATININE 1.05 mg/dl (0.60-1.40); POTASSIUM 3.5 mmol/L (3.5-5.1)
[2018-01-26] MEDS: METOPROLOL SUCC 50MG EXT REL TAB PO SCH (08:11)
--- NOTE | 2018-01-26 08:42 | DIAGNOSTIC IMAGING REPORT ---
CHEST 2 VIEWS ROUTINE CLINICAL HISTORY: Aspiration pneumonia COMPARISON STUDY: January 24, 2018 FINDINGS: The cardiac and mediastinal contours remain stable. There are persistent left mid and lower lung zone airspace opacity suspicious for pneumonia. The right lung remains clear. There are no significant pleural effusions.[ IMPRESSION: Persistent left mid and lower lung zone airspace opacity suspicious for pneumonia Electronically signed by: Jun Vann M.D. 01/26/2018 8:41 AM Dictated Date/Time: 01/26/2018 8:40 AM
[2018-01-26] MEDS ORDERED: METOPROLOL SUCC 50MG EXT REL TAB PO ONE (09:30)
--- NOTE | 2018-01-26 09:45 | CARDIOLOGY PROGRESS NOTE ---
DATE: 01/26/2018 TIME: 9:22 a.m. SUBJECTIVE: He would like to go home today. His heart rate has been reasonably controlled on diltiazem drip, currently at 15 mg per hour as well as metoprolol succinate 100 mg daily. Diltiazem drip was briefly held yesterday but restarted due to tachycardia. He denies current palpitations. His breathing is better today, although he did have some shortness of breath yesterday and overnight following his aspiration event. No angina. Denies syncope or near syncope. He does feel much improved, however, overall. He is frustrated, however. OBJECTIVE: VITAL SIGNS: Temperature 37.4 degrees, heart rate 117 beats per minute; however, had been in the 90s. Respiration rate 18, blood pressure 117/72 mmHg, oxygen saturation 93% on room air. GENERAL: In no acute distress. He is alert. NECK: No appreciable JVD. CARDIAC: No ventricular heave, irregularly irregular, normal S1, S2, no audible murmurs, rubs or gallops. LUNGS: Clear bilaterally. ABDOMEN: Soft, nontender, nondistended. Normoactive bowel sounds. EXTREMITIES: No cyanosis or edema. PSYCHIATRIC: Affect appears appropriate. MEDICATIONS: Include metoprolol succinate 100 mg daily, diltiazem drip at 15 mg per hour, Unasyn IV q. 6 hours, simvastatin 40 mg daily, and Xarelto 20 mg daily. LABORATORY DATA: White blood cell count is 12.56, down from 19.9; hemoglobin 12.6, platelets 194. Sodium 139, potassium 3.5, BUN 10, creatinine 1.05, and magnesium 2.2. IMAGING DATA: ECG from this morning personally reviewed. Atrial fibrillation at 102 beats per minute. Right bundle branch block. Telemetry personally reviewed. Atrial fibrillation and heart rate overall has improved. Chest x-ray from this morning, per radiology - persistent left mid and lower lung zone airspace opacity suspicious for pneumonia. ASSESSMENT AND PLAN: 1. Atrial fibrillation with rapid ventricular response: He has been in atrial fibrillation for several months. He has been cardioverted in the past. He is largely asymptomatic, but does have some palpitations as an outpatient. His heart rate as an outpatient has been reasonable and on a Holter monitor that was 6 hours during the daylight hours, his average heart rate was between 100 and 110. His beta miri has been adjusted as an outpatient. It is not surprising that he has become more tachycardic following his aspiration event. Would recommend increasing metoprolol succinate to 150 mg daily and can start oral diltiazem 30 mg q. 6 hours and titrate as appropriate while weaning off of diltiazem drip. He does have adequate heart rate even as an outpatient to tolerate further adjustment of his medications. If his heart rate is more reasonably controlled on oral medications, further titration could to be finished as an outpatient. He is currently asymptomatic. Continue anticoagulation for stroke risk reduction. We did discuss other treatment strategies such as repeating cardioversion or antiarrhythmic therapy but will attempt rate control strategy for now. 2. Aspiration: As per primary service. 3. Hypertension: He has a history of hypertension, but his blood pressure has been reasonably controlled. Titrating medications as above for adequate heart rate control. 4. Disposition: Follow up as an outpatient in the next 1-2 weeks to further evaluate his heart rate response to rate-controlling strategy. Further adjustments to his medical therapy can be made at that time if appropriate. Plan of care has been discussed with Dr. Winston of the primary hospitalist service. Please call for any other questions or concerns. If he remains hospitalized over the weekend, please call the on-call child care supervisor for [facility] for any questions or concerns. Upon discharge, would use long-acting diltiazem in place of short-acting diltiazem. Thank you for allowing me to participate in care of Mr. Holloway.
[2018-01-26] MEDS: DILTIAZEM HCL 30 MG TAB PO SCH ×2 (09:56→15:17)
[2018-01-26] MEDS: RIVAROXABAN 20 MG TAB PO SCH (15:17)
[2018-01-26] MEDS ORDERED: DILT-202 PO (18:33)
[2018-01-26] MEDS ORDERED: TPRSR50 PO (18:33)
[2018-01-26] MEDS ORDERED: AMOX875T PO (18:33)
--- NOTE | 2018-01-26 18:38 | Discharge Instructions ---
Discharge Instructions Date of Service Jan 26, 2018. Admission Reason for Admission: Aspiration Pneumonia, Hypoxia Discharge Discharge Diagnosis / Problem: Aspiration Pneumonia,Hypoxia, Rapid atrial fibrillation Discharge Goals Goal(s): Improve disease control, Diagnostic testing, Therapeutic intervention Activity Recommendations Activity Limitations: as noted below Exercise/Sports Limitations: gradually increase as tolerated Shower/Bathe: no limitations Driving or Machine Use: no limitations You may return to work on Monday, but refrain from manual labor or heavy exertion/lifting until after seen by Cardiology or PCP and cleared to do so. . Instructions / Follow-Up Instructions / Follow-Up You were admitted with aspiration pneumonia and low oxygen levels after your colonoscopy. You were treated with antibiotics and weaned off oxygen. Please finish out a course of antibiotics and have a repeat chest xray in 3-4 weeks to ensure complete resolution of your pneumonia. You had rapid atrial fibrillation due to the stress of the pneumonia. You were started on a new medication called diltiazem to control the rate; your metoprolol was also increased to 150mg once daily. Please follow up with Cardiology and your PCP within 1-2 weeks. Current Hospital Diet Patient's current hospital diet: Regular Diet Discharge Diet Recommended Diet: AHA Diet (Heart Healthy) Procedures Procedures Performed: Chest xray Pending Studies Studies pending at discharge: yes List of pending studies: Final Blood cultures Medical Emergencies . Who to Call and When: Medical Emergencies: If at any time you feel your situation is an emergency, please call 911 immediately. . Non-Emergent Contact Non-Emergency issues call your: Primary Care Provider, Highway Safety Engineer Call Non-Emergent contact if: you have a fever, temperature is above 100.5, you have any medication questions you have heart palpitations, your heart rate seems fast, or for any other acute concerns. . . "Provider Documentation" section prepared by Ghazala Winston. .
--- NOTE | 2018-01-26 18:50 | Discharge Summary ---
Discharge Summary Date of Service Jan 26, 2018. Discharge Summary Admission Date: Jan 24, 2018 at 19:52 Discharge Date: Jan 26, 2018 Discharge Disposition: Home Principal Diagnosis: Aspiration PNA, Acute hypoxic respiratory failure,Rapid atrial fibrillation Problems/Secondary Diagnoses: Sepsis PAF on Xarelto HPL BPH Hemoptysis Procedures: CXR x 2 Consultations: Cardiology Medication Reconciliation New Medications: Amoxicillin & Pot Clavulanate (Augmentin 875-125 mg) 1 Tab Tab 875 MG PO BID, #12 TAB Diltiazem HCl (Diltiazem Cd) 120 Mg Capcr 120 MG PO QPM for 30 Days, #30 CAP Metoprolol Succinate (Metoprolol Succinate ER) 50 Mg Tabcr 150 MG PO QAM for 30 Days, #90 TAB Continued Medications: Ascorbic Acid (Vitamin C) 1,000 Mg Tab 1 TAB PO QAM B-Complex Vitamins (Vitamin B Complex) 1 Tab Tab 1 TAB PO QAM Lutein-Zeaxanthin (Lutein) 1 Cap Cap 1 CAP PO QAM Multivitamins/Minerals (Mvi With Minerals) Tab 1 TAB PO DAILY, TAB Rivaroxaban (Xarelto) 20 Mg Tab 20 MG PO QPM, TAB Simvastatin (Zocor) 40 Mg Tab 40 MG PO QPM, TAB Tamsulosin Hcl (Flomax) 0.4 Mg Cap 0.4 MG PO HS, CAP Discontinued Medications: Metoprolol Succinate (Metoprolol Succinate ER) 100 Mg Tabcr 100 MG PO QAM Discharge Exam Pt feeling very well. Only minimal clear sputum now, no further hemoptysis. No chest pain or pressure, no heart palpitations. He ambulated around the halls and had no SOB or pain. Rates are now improved to the 80s-100 off diltiazem drip. Discussed case with Cardiology today. Review of Systems: Constitutional: No fever, No chills Eyes: No problem reported ENT: No problem reported Respiratory: + cough, No hemoptysis Cardiovascular: No chest pain, No palpitations Abdomen: No pain, No nausea, No vomiting Musculoskeletal: No problem reported Genitourinary - Male: No problem reported Neurologic: No problem reported Psychiatric: No problem reported Endocrine: No problem reported Hematologic / Lymphatic: No problem reported Integumentary: No problem reported Physical Exam: General Appearance: WD/WN, no apparent distress Eyes: normal inspection, sclerae normal ENT: hearing grossly normal Neck: trachea midline Respiratory/Chest: no respiratory distress, no accessory muscle use, + crackles (at left lower and middle lung lovelace, otherwise clear) Cardiovascular: no edema, no gallop, no murmur, normal peripheral pulses, + irregularly irregular (with normal rate) Abdomen / GI: normal bowel sounds, non tender, soft Extremities: normal inspection, no calf tenderness, normal capillary refill , no pedal edema, normal range of motion Neurologic/Psychiatric: alert, normal mood/affect, oriented x 3 Skin: normal color, warm/dry, no rash Hospital Course This patient is a 62 y/o M Hx PAF on Xarelto, HPL, and BPH. Pt underwent a colonoscopy on the day of admission and is suspected to have aspirated. He awoke from the procedure with SOB, a cough and a burning sensation in his lungs. He subsequently developed a fever and presented to the ER from the endoscopy suite. He was hypoxic on arrival. He denies that he was ill prior to the procedure. The pt normally takes Xarelto which he had DCd 3 days prior in preparation for the procedure. Chest x-ray showed a left lower lobe infiltrate. He was also in rapid atrial fibrillation. He was admitted for sepsis, aspiration PNA, and rapid atrial fibrillation. 1) Sepsis/aspiration pneumonia/acute hypoxic respiratory failure/hemoptysis- hemoptysis likely secondary to aspiration pneumonitis in the setting of being on anticoagulation, it is resolved. He is now weaned down to room air and has no MCCLOUD. Hgb remained fairly stable. -Received Unasyn and will transition to Augmentin to finish out course of antibiotics for total 7 days -Repeat chest x-ray in 3-4 weeks to ensure resolution of infiltrates 2) Rapid AF - likely this is partially compensatory and also related to neb treatments. He was treated with diltiazem drip, increased dose of Toprol XL to 150mg daily, added diltiazem 30mg po q6h and then weaned off diltiazem gtt. Rates are improved to 80-100 -Continue Xarelto for stroke prevention -Cardiology consultation appreciated -discharge to home on Cardizem CD 120mg once daily and Toprol XL 150mg po once daily 3) HPL -stable no issues -cont Zocor Disposition-to home today Total Time Spent: Greater than 30 minutes This includes examination of the patient, discharge planning, medication reconciliation, and communication with other providers. Discharge Instructions Please refer to the electronic Patient Visit Report (Discharge Instructions) for additional information. Follow-Up PCP in 1-2 weeks Cardiology in 1-2 weeks Additional Copies To Michel Madera M.D.; Giacomo Walker MD
[2018-01-27] MEDS ORDERED: METOPROLOL SUCC 50MG EXT REL TAB PO SCH (09:00)
--- NOTE | 2018-03-14 08:00 | EDITING REQUIRED CODING QUERY ---
SEPSIS To promote full compliance with coding requirements relating to patient care, physician participation is requested in all cases of restaurant hourly team member uncertainty. Please assist us with the question(s) below: In responding to this query, please exercise your independent professional judgement. The fact that a question is asked does not imply that any particular answer is desired or expected. We appreciate your clarification on this issue. Throughout the medical record, you have clearly documented a localized infection and your patient has clinical evidence of a generalized sepsis or severe sepsis. The term urosepsis is a nonspecific entity and is coded as an UTI. If the patient has sepsis, severe sepsis, from an urinary source or some other source, please clarify in your response below. Patient status post colonoscopy . Developed fever and dx with aspiration pneumonia. Please check below the following diagnoses you were treating. Thanks for your help! LATONYA Covarrubias ( )Bacteremia (Nonspecific laboratory finding of bacteria in the blood) Specify Organism ( ) Present on Admission ( ) Not present on admission ( ) Unable to clinically determine ( ) Septicemia (Systemic disease associated with the presence of pathogenic microorganisms in the blood): Specify Organism ( ) Present on Admission ( ) Not present on admission ( ) Unable to clinically determine (x ) Sepsis -PLEASE SEE MY DISCHARGE SUMMARY WHERE SEPSIS WITH ASPIRATION PNEUMONIA IS CLEARLY DOCUMENTED Specify Organism UNKNOWN Specify Associated Condition/Diagnosis (x ) Present on Admission ( ) Not present on admission ( ) Unable to clinically determine ( ) Severe Sepsis (Sepsis associated with acute organ dysfunction) Specify Organism Specify Associated Condition/Diagnosis ( ) Present on Admission ( ) Not present on admission ( ) Unable to clinically determine ( ) Septic Shock (Severe sepsis with acute circulatory failure, unexplained by other causes) ( ) Present on Admission ( ) Not present on admission ( ) Unable to clinically determine ( ) Other, patient has:
== END 2018-01-26 19:17 | disposition home or self-care (01) | DRG 871 ==
LOC: EDBD 17:32 → C.EDB 17:33 → C.2T 19:52 → ENRESERV 19:59
PROVIDERS: ADMIT Internal Medicine; ATTEND Family Medicine
DX: A41.9 Sepsis, unspecified organism (principal); J95.89 Other postprocedural complications and disorders of respiratory system, not elsewhere classified; J96.01 Acute respiratory failure with hypoxia; R04.2 Hemoptysis; J69.0 Pneumonitis due to inhalation of food and vomit; I10 Essential (primary) hypertension; I48.91 Unspecified atrial fibrillation; R09.02 Hypoxemia; E66.9 Obesity, unspecified; Z82.49 Family history of ischemic heart disease and other diseases of the circulatory system; E78.5 Hyperlipidemia, unspecified; N40.0 Benign prostatic hyperplasia without lower urinary tract symptoms; Z79.01 Long term (current) use of anticoagulants; Y83.8 Other surgical procedures as the cause of abnormal reaction of the patient, or of later complication, without mention of misadventure at the time of the procedure; Y92.530 Ambulatory surgery center as the place of occurrence of the external cause

== ENCOUNTER → 2018-01-24 | Day surgery (SDC) | payer BC, OTHER ==
[~2018-01-24] VITALS: Ht 180.3 cm; Wt 99.1 kg
[~2018-01-24] MED LIST changes: +ALBUT/IPRATROP 3MG/0.5MG NEB 3 ML VIAL INH STA; +AMOX875T PO; +ASCO10003 PO; -ASCO100061 PO; -B-CO-25 PO; +B-COTAB18 PO; +DILT-202 PO; +ESMOLOL HCL 10 MG/ML 10 ML VIAL ONE; +LIDOCAINE HCL 2% 2 ML VIAL (20MG/ML) ONE; +LUTE15CA PO; -METO50TA7 PO; +METOPROLOL TARTRATE 1 MG/ML VIAL IV STA; +METOPROLOL TARTRATE 1 MG/ML VIAL ONE; +MIDAZOLAM HCL 1 MG/ML 2ML VIAL ONE; +MULT-513 PO; +ONDANSETRON INJ 2 MG/ML 2 ML VIAL ONE; +PROPOFOL IV EMULSION 10 MG/ML 20 ML VIAL IV ONE; +SODIUM CHLORIDE 0.9% 500ML 500 ML IV ONE; +TPRSR/100 PO; +TPRSR50 PO
[2018-01-24 13:53] VITALS: Ht 180.3 cm; Wt 99.1 kg
--- NOTE | 2018-01-24 14:18 | Endo History and Physical ---
History & Physical Date of Service: Jan 24, 2018. Chief Complaint: ROUTINE SCREENING Referring Physician: SAHIL MILLIGAN History of Present Illness 62 yo CM who presents for screening colonoscopy. Past Surgical History Hx Cardiac Surgery: Yes (CARDIOVERSION) Hx Internal Defibrillator: No Hx Pacemaker: No Hx Abdominal Surgery: Yes (INGUINAL HERNIA REPAIR) Hx of Implantable Prosthesis: No Hx Post-Op Nausea and Vomiting: No Hx Cancer Surgery: No Hx Thoracic Surgery: No Hx Orthopedic: No Hx Urinary Tract Surgery: No Family History None Social History Smoking Status: Never Smoker Hx Substance Use: No Hx Alcohol Use: Yes (OCCASIONALLY) Allergies Coded Allergies: No Known Allergies (Verified , 01/24/18) Current Medications Reported Home Medications Medications Dose Route/Sig Max Daily Dose Days Date Category Vitamin C (Ascorbic Acid) 1,000 Mg Tab 1 Tab PO QAM 01/12/18 Reported Vitamin B Complex (B-Complex Vitamins) 1 Tab Tab 1 Tab PO QAM 01/12/18 Reported Lutein (Lutein-Zeaxanthin) 1 Cap Cap 1 Cap PO QAM 01/12/18 Reported Zocor (Simvastatin) 40 Mg Tab 40 Mg PO QPM 01/12/18 Reported Metoprolol Succinate ER (Metoprolol Succinate) 100 Mg Tabcr 1 Tab PO QAM 01/12/18 Reported Xarelto (Rivaroxaban) 20 Mg Tab 20 Mg PO QPM 05/20/16 Reported Flomax (Tamsulosin Hcl) 0.4 Mg Cap 0.4 Mg PO HS 04/01/16 Reported Mvi With Minerals (Multivitamins/Minerals) Tab 1 Tab PO DAILY 01/24/18 Reported Vital Signs Weight (Kilograms): 99.09 Height (Feet): 5 Height (Inches): 11 Date Time Temp Pulse Resp B/P (MAP) Pulse Ox O2 Delivery O2 Flow Rate FiO2 01/24/18 14:04 37 92 20 125/88 (100) 97 Room Air Physical Exam General Appearance: WD/WN, no apparent distress Respiratory/Chest: Auscultation: breath sounds normal Cardiovascular: Heart Auscultation: RRR Abdomen: Bowel Sounds: normal Inspection & Palpation: soft, non-distended, no tenderness, guarding & rebound Assessment and Plan Assessment: 62 yo CM who presents for screening colonoscopy. Plan: Proceed with colonoscopy.
--- NOTE | 2018-01-24 14:59 | GI REPORT ---
Procedure Date: 01/24/2018 2:08 PM THIS REPORT HAS BEEN AMENDED Addendum Number: 1 Addendum Date: 01/24/2018 3:02:08 PM No specimens were collected during this exam, and therefore, no pathology is pending. Repeat colonoscopy in 10 years. Addendum Number: 2 Addendum Date: 01/24/2018 3:02:39 PM Patient did have O2 desaturation requiring brief withdrawal of colonoscope, until he received O2 via Ambu bag and oral airway placement. He responded quickly and was felt by anesthesia to be stable for re-insertion of scope and completion of procedure. Procedure: Colonoscopy Indications: Screening for colorectal malignant neoplasm Medicines: Monitored Anesthesia Care Complications: No immediate complications. Estimated Blood Loss: Estimated blood loss: none. Procedure: Pre-Anesthesia Assessment: - Prior to the procedure, a History and Physical was performed, and patient medications and allergies were reviewed. The patient's tolerance of previous anesthesia was also reviewed. The risks and benefits of the procedure and the sedation options and risks were discussed with the patient. All questions were answered, and informed consent was obtained. Prior Anticoagulants: The patient has taken no previous anticoagulant or antiplatelet agents. ASA Grade Assessment: II - A patient with mild systemic disease. After reviewing the risks and benefits, the patient was deemed in satisfactory condition to undergo the procedure. After I obtained informed consent, the scope was passed under direct vision. Throughout the procedure, the patient's blood pressure, pulse, and oxygen saturations were monitored continuously. The On-site loaner was introduced through the anus and advanced to the terminal ileum. The colonoscopy was performed without difficulty. The patient tolerated the procedure well. The quality of the bowel preparation was good. The terminal ileum, ileocecal valve, appendiceal orifice, and rectum were photographed. Findings: The perianal and digital rectal examinations were normal. Multiple small-mouthed diverticula were found in the sigmoid colon. Non-bleeding internal hemorrhoids were found during retroflexion. The hemorrhoids were small. Impression: - Diverticulosis in the sigmoid colon. - Non-bleeding internal hemorrhoids. - No specimens collected. Recommendation: - Resume previous diet. - Continue present medications. - Repeat colonoscopy for surveillance based on pathology results. - Return to primary care physician as previously scheduled. Justice Ayala, DO 01/24/2018 2:58:34 PM This report has been signed electronically. Note Initiated On: 01/24/2018 2:08 PM I attest to the content of the Intraoperative Record and orders documented therein, exceptions below Justice Sanderson Case, DO 01/24/2018 3:02:37 PM This report has been signed electronically. Justice Sanderson Case, DO 01/24/2018 3:04:37 PM This report has been signed electronically.
--- NOTE | 2018-01-24 15:01 | Discharge Instructions ---
Endoscopy Patient Instructions Date / Procedure(s) Performed Jan 24, 2018. Colonoscopy Allergy Information Coded Allergies: No Known Allergies (Verified , 01/24/18) Discharge Date / Findings Jan 24, 2018. Diverticulosis Internal hemorrhoids Medication Instructions Stopped Medication(s): XARELTO OK to resume all medications today as prescribed Reported Home Medications Medications Dose Route/Sig Max Daily Dose Days Date Category Vitamin C (Ascorbic Acid) 1,000 Mg Tab 1 Tab PO QAM 01/12/18 Reported Vitamin B Complex (B-Complex Vitamins) 1 Tab Tab 1 Tab PO QAM 01/12/18 Reported Lutein (Lutein-Zeaxanthin) 1 Cap Cap 1 Cap PO QAM 01/12/18 Reported Zocor (Simvastatin) 40 Mg Tab 40 Mg PO QPM 01/12/18 Reported Metoprolol Succinate ER (Metoprolol Succinate) 100 Mg Tabcr 1 Tab PO QAM 01/12/18 Reported Xarelto (Rivaroxaban) 20 Mg Tab 20 Mg PO QPM 05/20/16 Reported Flomax (Tamsulosin Hcl) 0.4 Mg Cap 0.4 Mg PO HS 04/01/16 Reported Mvi With Minerals (Multivitamins/Minerals) Tab 1 Tab PO DAILY 01/24/18 Reported Provider Instructions Activity Restrictions - No exercising or heavy lifting for 24 hours. - Do not drink alcohol the day of the procedure. - Do not drive a car or operate machinery until the day after the procedure. - Do not make any important decisions or sign important papers in 24 hours after the procedure. Following Day: - Return to full activity which may include returning to work/school. Diet Start your diet with liquids and light foods (jello, soup, juice, toast). Then eat your usual diet if not nauseated. Treatment For Common After Affects For mild abdominal pain, bloating, or excessive gas: - Rest - Eat lightly - Lie on right side Follow-Up Information Follow-up with SAHIL MILLIGAN as scheduled Anesthesia Information What You Should Know You have had a procedure that required some medicine to reduce anxiety and discomfort. This treatment is called moderate sedation. After receiving the treatment, you may be sleepy, but you will be able to breathe on your own. The effects of the treatment may last for several hours. Follow these instructions along with Activity/Diet recommendations noted above: * Do NOT do anything where dizziness or clumsiness would be dangerous. * Rest quietly at home today, then you can be up and about tomorrow. * Have a responsible person stay with you the rest of today. * You may have had an I.V. today. If so, you may take the dressing off later today. Recommendations Call your doctor if: * Trouble breathing * Continuous vomiting for more than 24 hours * Temperature above 101 degrees * Severe abdominal pain or bloating * Pain not relieved by pain medicine ordered * There is increased drainage or redness from any incision * A large amount of rectal bleeding greater than 2-3 tablespoons. (If you had a polyp/s removed or have hemorrhoids, a small amount of blood - from the rectum is to be expected.) * You have any unanswered questions or concerns. IN THE EVENT OF A SERIOUS EMERGENCY, GO TO THE NEAREST EMERGENCY ROOM Your discharge instructions were prepared by provider Justice Ayala. Patient Instructions Signature Page Jerrod Holloway Patient (or Guardian) Signature/Date: I have read and understand the instructions given to me by my caregivers. Caregiver/RN/Doctor Signature/Date: The above-named patient and/or guardian has received patient instructions on this date. + Original Patient Signature Page (only) stays with chart. Please make copy for patient.
--- NOTE | 2018-01-24 16:03 | Anesthesiology Progress Note ---
Anesthesia Post Op Note Date & Time Jan 24, 2018 at 16:03 Vital Signs Pain Intensity: 0 Vital Signs Past 12 Hours Date Time Temp Pulse Resp B/P (MAP) Pulse Ox O2 Delivery O2 Flow Rate FiO2 01/24/18 15:55 100 18 131/105 (114) 94 Nasal Cannula 2 01/24/18 15:40 93 18 156/112 (127) 92 Nasal Cannula 2 01/24/18 15:30 90 18 140/108 (119) 98 Nasal Cannula 2 01/24/18 15:23 97 147/106 01/24/18 15:20 113 20 150/96 (114) 97 Mask 10 01/24/18 15:10 105 20 139/96 (110) 96 Mask 10 01/24/18 15:00 116 20 134/108 (117) 94 Mask 10 01/24/18 14:04 37 92 20 125/88 (100) 97 Room Air Notes Mental Status: alert / awake / arousable, participated in evaluation Pt Amnestic to Procedure: Yes Nausea / Vomiting: adequately controlled Pain: adequately controlled Airway Patency, RR, SpO2: stable & adequate BP & HR: stable & adequate Hydration State: stable & adequate Anesthetic Complications: no major complications apparent Awake, doing well. HR back to baseline between 90s to low 100s after 5mg IV metoprolol was given. Pt without any complaints.
[2018-01-24 17:13] VITALS: TEMP 38.5
[2018-01-24 17:15] VITALS: BP 163/94; O2SAT 95
[2018-01-24 17:30] VITALS: PULSE 103; O2SAT 88
== END | disposition home or self-care (01) ==
LOC: C.GI 13:25
PROVIDERS: ATTEND Internal Medicine
DX: Z12.11 Encounter for screening for malignant neoplasm of colon (principal); K57.30 Diverticulosis of large intestine without perforation or abscess without bleeding; K64.8 Other hemorrhoids; I48.0 Paroxysmal atrial fibrillation; I10 Essential (primary) hypertension; G47.33 Obstructive sleep apnea (adult) (pediatric); Z79.01 Long term (current) use of anticoagulants; Z81.8 Family history of other mental and behavioral disorders

== ENCOUNTER → 2018-01-30 | Outpatient (CLI) | payer OTHER ==
[~2018-01-30] MED LIST changes: +AMOX875T PO; -CHOL1000 PO; +DILT-202 PO; -TPRSR/100 PO; +TPRSR50 PO
[2018-01-30 17:47] LABS: BASO % 0.3 %; BASO ABS # 0.03 K/uL (0-0.2); EOS % 1.2 %; EOS ABS # 0.13 K/uL (0-0.5); HEMOGLOBIN 14.9 g/dL (14.0-18.0); IG# 0.05 K/uL (0.00-0.02); LYMPH % 16.3 %; LYMPH ABS # 1.76 K/uL (1.2-3.4); MEAN CELL VOLUME 89.8 fL (80-100); MEAN CORPUSCULAR HEMOGLOBIN 31.1 pg (25-34); MEAN CORPUSCULAR HGB CONC 34.7 g/dl (32-36); MEAN PLATELET VOLUME 10.4 fL (7.4-10.4); MONO % 11.7 %; MONO ABS # 1.27 K/uL (0.11-0.59); NEUT ABS # 7.58 K/uL (1.4-6.5); PLATELET COUNT 342 K/uL (130-400); RED CELL DISTRIBUTION WIDTH CV 14.2 % (11.5-14.5); RED CELL DISTRIBUTION WIDTH SD 46.8 fL (36.4-46.3); WHITE BLOOD COUNT 10.82 K/uL (4.8-10.8)
[2018-01-30 18:28] LABS: ALBUMIN 3.3 gm/dl (3.4-5.0); ALKALINE PHOSPHATASE 72 U/L (45-117); ALT/SGPT 29 U/L (12-78); AST/SGOT 12 U/L (15-37); BLOOD UREA NITROGEN 22 mg/dl (7-18); CALCIUM 8.7 mg/dl (8.5-10.1); CARBON DIOXIDE 27 mmol/L (21-32); CREATININE 1.25 mg/dl (0.60-1.40); GLUCOSE 97 mg/dl (70-99); POTASSIUM 3.8 mmol/L (3.5-5.1); SODIUM 137 mmol/L (136-145); TOTAL PROTEIN 7.6 gm/dl (6.4-8.2)
== END | disposition home or self-care (01) ==
LOC: C.LABPBG 14:16
PROVIDERS: ATTEND Internal Medicine
DX: J69.0 Pneumonitis due to inhalation of food and vomit (principal); R14.0 Abdominal distension (gaseous)

== ENCOUNTER → 2018-07-19 | Outpatient (CLI) | payer OTHER ==
[~2018-07-19] MED LIST changes: -AMOX875T PO
--- NOTE | 2018-07-20 06:10 | SPLIT NIGHT TECHNICIAN REPORT ---
[facility] Split Night Polysomnogram - Customer Success Advocate Report Study date: 07/19/2018 Referring Physician: DR. Deidra MILLIGAN Name: JEAN-PAUL GOMEZ Customer Success Advocate: Susannah Vale, PSGT. Date of : 1955 Height: 63 years, Height 5' 10" Sex: Male Weight: 228 lbs Age: 63 Neck Circum:17.5 inches BMI: Medications: 32.71 Lorazepam 0.5 mg, Diltiazem CD 120 mg, Metoprolol Succinate ER 200 mg, Xarelto 20 mg, Tamsulosin HCI 0.4 mg, Simvastatin 40 mg, Centrum Silver, Lutein 20 mg, Super B Complex, Vit.C. Patient History 63-year-old male with Afib. presents for a split night study. Patient has used c-pap for many years and it compliant with a rate of 10 cm h20 , with a full face mask. Neck = 17.5 inches. Parameters Monitored NPSG: E1-M2, E2-M1, Fp1-M2, Fp2-M1, F3-M2, F4-M2, F4-M1, C3-M2, C4-M2, C4-M1, O1-M2, O2-M2, O2-M1, T3-M2, T4-M1, P3-M2, P4-M1, CHIN1, CHIN2, HR, EKG, Legs, PFLOW, SNOR, FLOW, CFLOW, Tidal Volume, THOR, ABDO, SpO2, PLTH, CPRESS, ETCO2 Wave, ETCO2, pH SLEEP SUMMARY DATA DIAGNOSTIC TREATMENT Lights Out: 11:16:25 PM NONE Lights On: 1:43:25 AM 5:27:25 AM Total Recording Time (TRT): 146.6 min. 220.9 min. Total Sleep Time (TST): 138.0 min. 206.5 min. NREM Time: 105.0 min. 144.0 min. REM Time: 33.0 min. 62.5 min. Sleep Period Time (SPT): 138.0 min. 213.0 min. Sleep Efficiency (SE): 94 % 94 % Sleep Latency: 8.5 min. NONE min. Arousal Index: 6.1 4.9 PAP Treatment Levels: 5, 7, 8, 9 * Optimal Pressure(s) SLEEP STAGING DATA DIAGNOSTIC TREATMENT Duration (min) TST % Duration (min) TST % Stage Wake: 8.6 min. -- 14.4 min. -- WASO: 0.5 min. -- 6.5 min. -- NREM: 105.0 min. 76 % 144.0 min. 70 % Stage N1: 4.0 min. 3 % 4.5 min. 2 % Stage N2: 101.0 min. 73 % 139.5 min. 68 % Stage N3: 0.0 min. 0 % 0.0 min. 0 % REM: 33.0 min. 24 % 62.5 min. 30 % POSITIONAL DATA Event Count Index Event Count Index Supine: 68 44 2 2.1 Supine NREM: 46 46.4 1 2.4 Supine REM: 22 41 1 2 Non-Supine: 6 7.8 20 8.0 Non-Supine NREM: 5 6.6 19 9.6 Non-Supine REM: 1 85.2 1 1.9 AROUSAL SUMMARY DATA: Event Count Index Event Count Index Apnea Arousals: 0 0.4 0 0.0 Hypopnea Arousals: 2 0.9 1 0.3 Snore Arousals: 5 2.2 3 0.9 PLM Arousals: 3 1.3 0 0.0 Non-Specific Arousals: 5 2.2 11 3.2 Total Arousals: 14 6.1 17 4.9 MYOCLONUS (PLM) Event Count Index Event Count Index PLM: 191 83.0 48 13.9 PLM AROUSAL: 3 1.3 0 0.0 PLM W/O AROUSAL 191 83.0 48 13.9 PLM W/RESP EVENT 7 0.0 2 0.0 MYOCLONUS (PLM) Event Count Index Event Count Index LM: 0 12.6 30 8.7 LM AROUSAL: 0 0.0 2 0.6 LM W/O AROUSAL LM W/RESP EVENT LM NON SPECIFIC 198 86.1 68 19.8 HEART RATE DATA DIAGNOSTIC TREATMENT Sleep (bpm): 78 73 REM (bpm): 93 92 NREM (bpm): 92 92 Tachycardia Count: 0 0 Tachycardia Duration: 0.00 0 Bradycardia Count: 0 0 Bradycardia Duration: 0.00 0 DIAGNOSTIC PORTION TREATMENT PORTION RESPIRATORY DATA Event Count Index Event Count Index AHI: -- 32.2 -- 6.4 RDI: -- 32.2 -- 6 Obstructive Apnea: 1 0.4 0 0.0 Central Apnea: 0 0.0 0 0.0 Mixed Apnea: 0 0.0 0 0.0 Hypopnea: 73 31.7 22 6.4 RERA: 0 0.0 0 0.0 Total Apneas: 1 0.4 0 0.0 RESPIRATORY DATA REM NREM SLEEP REM NREM SLEEP Supine Position: Obstructive Apneas: 1 0 1 0 0 0 Central Apneas: 0 0 0 0 0 0 Mixed Apneas: 0 0 0 0 0 0 Hypopneas: 21 46 67 1 1 2 RERA 0 0 0 0 0 0 Total Supine Events: 22 46 68 1 1 2 Supine AHI: 41 46.4 44 2 2.4 2.1 Supine RDI: 40.9 46.4 44.4 1.9 2.4 2.1 REM NREM SLEEP REM NREM SLEEP Non-Supine Position: Obstructive Apneas: 0 0 0 0 0 0 Central Apneas: 0 0 0 0 0 0 Mixed Apneas: 0 0 0 0 0 0 Hypopneas: 1 5 6 1 19 20 RERA 0 0 0 0 0 0 Total Supine Events: 1 5 6 1 19 20 Supine AHI: 85.2 6.6 7.8 1.9 9.6 8.0 Supine RDI: 85.2 6.6 7.8 1.9 9.6 8.0 OXYGEN DESTAURATION DATA: Event Count Index Event Count Index REM Desaturations: 21 38.2 5 4.8 NREM Desaturations: 52 29.7 24 10.0 SNORE DATA DIAGNOSTIC TREATMENT Snore Time: 15.6 1:48:55 AM Snore TST%: 5 8 Snore Arousal Count: 5 3 Snore Arousal Index: 2.2 0.9 Desaturation Event Summary: Minimum %SpO2 Event Count Mean/Min/Max Duration(sec.) Desaturation Index % Time In Bed > 90 101 21.8 / 8.3 / 56.3 19.0 87.3 86 - 90 1 15.5 / 15.5 / 15.5 1.3 12.5 81 - 85 0 N/A 0.0 0.1 76 - 80 0 N/A 0.0 0.1 71 - 75 0 N/A 0.0 0.0 66 - 70 0 N/A 0.0 0.0 61 - 65 0 N/A 0.0 0.0 56 - 60 0 N/A 0.0 0.0 51 - 55 0 N/A 0.0 0.0 < 50 0 N/A 0.0 0.0 OXYGEN SATURATION DATA DIAGNOSTIC TREATMENT SpO2 Mean Sleep: 92 % 92 % SpO2 Mean REM: 93 % 92 % SpO2 Mean NREM: 92 % 92 % SpO2 Minimum Sleep: 74 % 88 % SpO2 Minimum REM: 74 % 88 % SpO2 Minimum NREM: 86 % 88 % Time Below 90% (TST): 6.1 2.6 Time Below 88% (TST): 1.7 0.0 Total REM NREM Awake <50% 0.0 min. 0.0 min. 0.0 min. 0.0 min. 51 - 60% 0.0 min. 0.0 min. 0.0 min. 0.0 min. 61 - 70% 0.0 min. 0.0 min. 0.0 min. 0.0 min. 71 - 80% 0.3 min. 0.3 min. 0.0 min. 0.0 min. 81 - 90% 46.3 min. 7.1 min. 37.2 min. 2.1 min. 91 - 100% 319.8 min. 88.1 min. 211.8 min. 19.8 min. Average 92 92 92 93 Minimum SpO2 74 74 86 88 Desaturation Event Index 16.7 16.3 18.3 0.0 # Desat. Events below 89% 23 13 10 N/A Time(%) with Saturation below 89% 0.9 0.6 0.3 0.0 Time(min.) with Saturation below 89% 3.3 2.2 0.9 0.2 Recording Customer Success Advocate Comments: Split -Night: Mr. Gomez slept in the right, left, and supine positions. Cardiac arrhythmia seen, no PLM's noted. No bruxism noted. Snoring was noted and scored as a 2 on a scale of 1 through 5. (0=no snoring, 5=snoring loud enough to be heard through a closed door or down the farfan way) At 1:42 am, MR. Gomez has met specific Split-Night criteria during the diagnostic portion of this study. CPAP was initiated at +4 CMH2O and up-titrated to an optimal level of +9 CMH2O, which nearly eliminated all respiratory events and snoring. Mr. Gomez wore his full face mask during titration Mr. Gomez awoke to use the restroom zero times during the night. Mr. Gomez stated, I did sleep as well as I do when I am in my own bed". The final report will be interpreted and signed by a sleep physician. The completed physician report will then be placed in the patient medical record. Mr. Gomez slept well, displayed apnea and qualified for a split night study. See print outs of Cardiac arrythmias. Therapy Event: Therapy (cm H20) 0 5 7 8 9 Total Time at Pressure (min.) 146.6 78.5 49.4 65.0 26.9 TST at Pressure (min.) 138.0 74.6 49.4 63.0 19.5 # Periods 1 1 1 1 1 Sleep Onset (min.) 8.5 1.9 0.0 0.0 1.4 REM Onset (min.) 54.0 14.4 34.4 0.0 18.4 Sleep Efficiency % 94 95 100 96 72 Wakefulness (%) 5.9 5.0 0.0 3.2 27.6 Wakefulness (min.) 8.6 3.9 0.0 2.1 7.4 NREM 1 (%) 2.7 2.5 0.0 1.5 5.6 NREM 1 (min.) 4.0 2.0 0.0 1.0 1.5 NREM 2 (%) 68.9 59.3 68.6 67.6 55.7 NREM 2 (min.) 101.0 46.6 33.9 44.0 15.0 NREM 3 (%) 0.0 0.0 0.0 0.0 0.0 NREM 3 (min.) 0.0 0.0 0.0 0.0 0.0 REM (%) 22.5 33.1 31.4 27.7 11.1 REM (min.) 33.0 26.0 15.5 18.0 3.0 # Arousals 14 6 4 5 2 Arousal Index 6.1 4.8 4.9 4.8 6.2 # Snore 876 150 143 451 5 Snore Index 380.9 120.7 173.6 429.6 15.4 AHI 32.2 14.5 2.4 1.9 0.0 AHI Supine 44.4 N/A 0.0 2.8 N/A AHI Non-Supine 7.8 14.5 3.3 0.0 0.0 NREM AHI 29.1 21.0 3.5 1.3 0.0 REM AHI 41.8 2.3 0.0 3.3 0.0 RDI 32.2 14.5 2.4 1.9 0.0 # Obstructive 1 0 0 0 0 # Central Ap 0 0 0 0 0 # Mixed 0 0 0 0 0 # Hypopneas 73 18 2 2 0 RERAS 0 0 0 0 0 Total Respiratory Events 74 18 2 2 0 Time Below SpO2 89.00% (min.) 2.8 0.3 0.0 0.0 0.0 Mean NREM SpO2 (%) 92 92 92 92 93 Mean REM SpO2 (%) 93 92 92 92 94 Mean Sleep SpO2 (%) 92 92 92 92 93 Min NREM SpO2 (%) 86 88 89 90 91 Min REM SpO2 (%) 74 88 89 90 92 Position Supine (min.) 91.8 0.0 13.2 42.9 0.0 Position Non-supine (min.) 46.2 74.6 36.2 20.1 19.5 LM Index Sleep 95.7 49.9 13.4 3.8 3.1 LM Index NREM 98.3 72.9 19.5 2.7 3.6 LM Index REM 87.3 6.9 0.0 6.7 0.0 Mean Heart Rate (bpm) 78 73 74 73 73 Min Heart Rate (bpm) 60 58 58 58 58
--- NOTE | 2018-07-23 15:45 | POLYSOMNOGRAPH REPORT ---
CLINICAL DATA: A 63-year-old male with BMI of 32.7, referred by Dr. Madera for a split-night study. He has atrial fibrillation and sleep apnea, has been on CPAP at 10 cm water pressure, using a full facemask, and has been compliant for many years. This was a split-night study. SLEEP ARCHITECTURE: For the diagnostic portion of the study, sleep period time was 138 minutes. Total sleep time was 138 minutes divided between 105 minutes of non-REM sleep and 33 minutes of REM sleep. Sleep latency was 8 minutes. Sleep efficiency was 94%. Sleep consisted of stage N1 3%, stage N2 73%, and REM 24%. For the treatment portion of the study, sleep period time was 213 minutes. Total sleep time was 206.5 minutes divided between 144 minutes of non-REM sleep and 62.5 minutes of REM sleep. Sleep latency was immediate. Sleep efficiency was 94%. Sleep consisted of stage N1 2%, stage N2 68%, and REM 30%. AROUSAL DATA: Prior to treatment, 14 arousals were recorded for an index of 6 per hour. During treatment, 17 arousals were recorded for an index of 4.9 per hour. PERIODIC LIMB MOVEMENT DATA: Prior to treatment, 198 limb movements during sleep were noted for an index of 86.1 per hour. During treatment, 68 limb movements during sleep were noted for an index of 19.8 per hour. EKG: Heart rates ranged from 73 to 93 beats per minute. Atrial fibrillation was noted. RESPIRATORY DATA: Severe sleep apnea was documented prior to treatment. The diagnostic AHI was 32. There was 1 obstructive apneic episode and 73 hypopneic episodes recorded. The mean AHI during treatment was 6.4. There were 22 hypopneic episodes. OXIMETRY DATA: Nocturnal hypoxemia was seen prior to treatment. Oxygen jaclyn was 74% during REM prior to treatment. Mean saturation treated was 92%. TREATMENT SUMMARY AND STEWARD/STEWARDESS LOUNGE'S COMMENTS: The patient slept in the right, left, and supine position. Snoring was mild, rated 2 on a scale of 1-5. At 1:42 a.m., he met split-night criteria. CPAP was started and titrated up to 9 cm water pressure using a full facemask. At his final pressure setting, the patient slept for 19.5 minutes with an AHI of 0. IMPRESSION: Severe sleep apnea/hypopnea corrected with CPAP 9 cm of water pressure. RECOMMENDATIONS: The patient should continue to practice use of CPAP. He could be continued on his current settings of 10 cm water pressure. If he is having problems with this pressure setting, he could have his CPAP decreased to 9 cm of water pressure. PAM
== END | disposition home or self-care (01) ==
LOC: C.NEUR 21:00
PROVIDERS: ATTEND Internal Medicine
DX: R53.83 Other fatigue (principal); G47.33 Obstructive sleep apnea (adult) (pediatric)